=== PATIENT | female | born 1950 | race African-American/Black ===

== ENCOUNTER → 2016-05-08 | Outpatient (CLI) | payer MEDICARE, OTHER ==
[2016-02-15 15:50] VITALS: BP 110/74
[~2016-05-08] MED LIST: ALPR0.5T PO; AMOX250C PO; ASPI325T4 PO; CALC500T27 PO; CRESTOR10 MG PO; GABA-585 PO; GABA-586 PO; HEPARIN PF 500 UNIT/5 ML DISP.SYRIN. IV ONE; HYDR-2680; HYDR-2762 PO; IOHEXOL 240 MG/ML 50ML VIAL. PO ONE; IOHEXOL 300 MG/ML 100ML VIAL. IV ONE; LETR2.5T18 PO; MULT-245 PO; OMEG1CAP6 PO; RISP1TAB43 PO; SENN1TAB29 PO; SPIR50TA PO; TEMA15CA PO; ZOLP10TA PO
--- NOTE | 2016-05-08 11:14 | RAD ---
CT chest abdomen pelvis with IV contrast History: Metastatic breast cancer. Comparison: CT chest abdomen pelvis 01/12/2016. Technique: After administration of oral and intravenous contrast, 75 mL Omnipaque 300, helical CT of the chest, abdomen, and pelvis was performed from the lung apices through the ischial tuberosities. One or more of the following individualized dose reduction techniques were utilized for the study: Automated exposure control Adjustment of mA and/or kV according to patient's size Use of iterative reconstruction technique. Findings: Left mastectomy and axillary lymphadenectomy changes are seen. Thyroid is symmetric. Trachea and mainstem bronchi appear patent. No internal mammary, axillary, hilar, or mediastinal lymphadenopathy is seen. Heart and pericardium are unremarkable. There is a right chest port and catheter. There is dense material seen adjacent to the chest portable involving the right breast soft tissues which is favored to represent extravasation contrast. There is interval improvement of chest metastatic disease. A few examples include right upper lobe pulmonary nodule which now measures 1.9 cm in maximum dimension (axial image 18), previously 2.2 cm. Peripheral anterior left upper lobe soft tissue thickening now measures 3.0 x 1.2 cm in axial dimension (axial image 17), previously 3.2 x 2.1 cm. Superior segment of the right lower lobe demonstrates 1.6 cm soft tissue pulmonary nodule (axial image 33), previously 2.0 cm. The posterior right pleural thickening is decreased in severity. 4 example, maximum axial dimension on axial image 42 is 2.6 x 0.9 cm (previously 3.2 x 1.0 cm). No new chest abnormality is identified. Several low low-attenuation lesions involving the liver are without significant change. Spleen, pancreas, gallbladder, and bilateral adrenal glands are unremarkable. Bilateral kidneys enhance symmetrically. Aortic atherosclerosis is seen. Urinary bladder is unremarkable. Uterus has a lobulated contour and heterogeneous appearance, probably from leiomyomata. No bowel obstruction or inflammation is identified. Appendix is without evidence of inflammation. No free air or free fluid is seen in the abdomen or pelvis. No abdominal or pelvic lymphadenopathy is seen. No suspicious osseous lesions are seen. Impression: 1. Interval improvement in metastatic disease involving the chest. 2. No evidence of metastatic disease in the abdomen or pelvis. 3. Subcutaneous infiltration within the right breast of a portion of intravenous contrast bolus.
== END | disposition home or self-care (01) ==
LOC: CT 08:31
PROVIDERS: ATTEND Internal Medicine Hematology & Oncology
DX: C50.912 Malignant neoplasm of unspecified site of left female breast (principal); C79.40 Secondary malignant neoplasm of unspecified part of nervous system
CPT/HCPCS: 71260; 74177; Q9966; Q9967

== ENCOUNTER → 2016-07-31 | Outpatient (CLI) | payer MEDICARE, OTHER ==
[2016-02-15 15:50] VITALS: BP 110/74
[~2016-07-31] MED LIST changes: +CONTRAST GIVEN MC PRN; -HEPARIN PF 500 UNIT/5 ML DISP.SYRIN. IV ONE; -IOHEXOL 300 MG/ML 100ML VIAL. IV ONE; +IOHEXOL 300 MG/ML 75 ML VIAL IV ONE; +PACL100V IV
--- NOTE | 2016-07-31 12:38 | RAD ---
CT chest abdomen pelvis with IV contrast History: Follow-up, primary left breast cancer. Comparison: CT chest abdomen pelvis 05/08/2016. Technique: After administration of oral and intravenous contrast, 75 mL Omnipaque 300, helical CT of the chest, abdomen, and pelvis was performed from the lung apices through the ischial tuberosities. One or more of the following individualized dose reduction techniques were utilized for the study: Automated exposure control Adjustment of mA and/or kV according to patient's size Use of iterative reconstruction technique. Findings: Left mastectomy and axillary lymphadenectomy changes are seen. Thyroid is symmetric. Trachea and mainstem bronchi appear patent. Right chest port and catheter are present with tip of the catheter at the atriocaval junction. No internal mammary, axillary, mediastinal, or hilar lymphadenopathy is seen. Thoracic aorta has normal caliber. Some of the pulmonary metastatic lesions appear mildly improved. No new pulmonary nodules are seen. For example, right upper lobe pulmonary nodule measuring 1.5 cm in axial dimension (previously 1.9 cm). Peripheral anterior left upper lobe soft tissue thickening appears unchanged measuring 3.0 x 1.2 cm in axial dimension. Superior segment of the right upper lobe demonstrates 1.3 cm nodule (previously 1.6 cm). The posterior right pleural thickening appears slightly less convex on on current examination than on the previous study. Other small pulmonary nodules appear similar in size to minimally decreased from previous study. Liver again demonstrates several low-density lesions, without significant change. Spleen, pancreas, gallbladder, and bilateral adrenal glands are unremarkable. Bilateral kidneys enhance symmetrically. No abdominal or pelvic lymphadenopathy is seen. No bowel obstruction or inflammation is identified. Appendix is without evidence of inflammation. Leiomyomatous uterus, with scattered calcifications, is seen. Urinary bladder is unremarkable. No free air or free fluid is seen in the abdomen or pelvis. No suspicious osseous lesions are identified Impression: 1. A few chest metastases appear slightly smaller from the previous study while several additional pulmonary metastases appear similar in size. 2. No evidence of metastatic disease in the abdomen or pelvis.
== END | disposition home or self-care (01) ==
LOC: CT 09:02
PROVIDERS: ATTEND Internal Medicine Hematology & Oncology
DX: C50.912 Malignant neoplasm of unspecified site of left female breast (principal); C79.40 Secondary malignant neoplasm of unspecified part of nervous system
CPT/HCPCS: 71260; 74177; Q9966; Q9967

== ENCOUNTER → 2016-09-05 | Outpatient (CLI) | payer MEDICARE, OTHER ==
[2016-02-15 15:50] VITALS: BP 110/74
[~2016-09-05] MED LIST changes: -CONTRAST GIVEN MC PRN; -IOHEXOL 240 MG/ML 50ML VIAL. PO ONE; -IOHEXOL 300 MG/ML 75 ML VIAL IV ONE
--- NOTE | 2016-09-05 13:57 | RAD ---
Indication: Left leg edema. Grayscale, color-flow and duplex Doppler evaluation of the left lower extremity deep venous system was performed. FINDINGS: There is no evidence of a left lower extremity DVT. The left lower extremity venous system demonstrates normal compressibility with normal response to augmentation and Valsalva. No soft tissue fluid collections are identified. IMPRESSION: No evidence of left lower extremity DVT.
== END | disposition home or self-care (01) ==
LOC: US 11:34
PROVIDERS: ATTEND Internal Medicine Hematology & Oncology
DX: R60.0 Localized edema (principal); M79.605 Pain in left leg
CPT/HCPCS: 93971

== ENCOUNTER → 2016-10-19 | Outpatient (CLI) | payer MEDICARE, OTHER ==
[2016-02-15 15:50] VITALS: BP 110/74
[~2016-10-19] MED LIST changes: -ASPI325T4 PO; +ASPI325T8 PO; -CALC500T27 PO; +CALC500T30 PO; +HEPARIN PF 500 UNIT/5 ML DISP.SYRIN. IV ONE; +IOHEXOL 240 MG/ML 50ML VIAL. PO ONE; +IOHEXOL 300 MG/ML 75 ML VIAL IV ONE
--- NOTE | 2016-10-19 12:59 | RAD ---
CT of the chest, abdomen and pelvis with contrast, 10/19/2016: History: Breast cancer with metastases, follow-up Multidetector CT imaging was performed following oral and IV administration of contrast. Comparison is made to a study from 07/31/2016. There has been a previous left mastectomy. There is a spiculated parenchymal opacity in the anterior aspect of the left upper lobe abutting the pleura. It measures approximately 3 cm in width and has shown no definite change since the previous study. An adjacent small bowel soft tissue density within the chest wall extending into the infraclavicular region is unchanged. There are surgical clips in this region. There are multiple small spiculated lesions in the right lung. There is an 8 x 14 mm nodule in the right upper lobe as seen on image 13 of series #2 which measured 10 x 15 mm on the previous study. A small triangular nodule in the right upper lobe seen laterally on image 19 of series #2 also appears to have decreased slightly in size since previous study. Several other right pulmonary nodules appear to be unchanged since the previous exam. No new pulmonary mass is seen. There is no evidence of pleural fluid. A right Port-A-Cath extends to the level of the atriocaval junction. No mediastinal or hilar adenopathy is evident. Several small well-defined low density lesions in the liver are unchanged and are probably cysts. The gallbladder is unremarkable. No pancreatic abnormality is detected. The spleen is of normal size. No renal or adrenal abnormality is detected. There is mild aortoiliac calcific plaquing. No abdominal or pelvic adenopathy is seen. The uterine contour is lobulated probably due to fibroids. The bowel loops are not dilated. No free fluid or free air is evident in the abdomen or pelvis. IMPRESSION: 1. Stable left anterior upper chest wall and underlying subpleural parenchymal densities. 2. Slight interval improvement in several of the right pulmonary nodules, while several other nodules are stable. 2. No CT evidence of metastatic disease in the abdomen or pelvis. PQRS Compliance Statement: One or more of the following individualized dose reduction techniques were utilized for this examination: 1. Automated exposure control 2. Adjustment of the mA and/or kV according to patient size 3. Use of iterative reconstruction technique
== END | disposition home or self-care (01) ==
LOC: CT 08:00
PROVIDERS: ATTEND Internal Medicine Hematology & Oncology
DX: C79.40 Secondary malignant neoplasm of unspecified part of nervous system (principal); C50.912 Malignant neoplasm of unspecified site of left female breast; R91.1 Solitary pulmonary nodule; K76.89 Other specified diseases of liver; D25.9 Leiomyoma of uterus, unspecified; Z90.12 Acquired absence of left breast and nipple
CPT/HCPCS: 71260; 74177; Q9966; Q9967

== ENCOUNTER → 2016-12-11 | Outpatient (CLI) | payer MEDICARE, OTHER ==
[2016-02-15 15:50] VITALS: BP 110/74
[~2016-12-11] MED LIST changes: -HEPARIN PF 500 UNIT/5 ML DISP.SYRIN. IV ONE; -IOHEXOL 240 MG/ML 50ML VIAL. PO ONE; -IOHEXOL 300 MG/ML 75 ML VIAL IV ONE
--- NOTE | 2016-12-11 10:33 | RAD ---
DATE: 12/11/2016 EXAM: DIGITAL DIAGNOSTIC RT HISTORY: History of left breast cancer status post mastectomy. Screening mammogram. COMPARISON: Prior mammogram from 11/05/2013, 10/03/2012 This study was interpreted with the benefit of Computerized Aided Detection (CAD). The breast parenchyma is heterogeneously dense, which could reduce sensitivity of mammography. Breast parenchyma level C. FINDINGS: CC and MLO views of the right breast are performed. There are no suspicious microcalcifications, masses or areas of architectural distortion. Findings are stable from the prior mammogram. IMPRESSION: Negative right mammogram. Recommend annual screening mammography. BI-RADS CATEGORY: 1 NEGATIVE RECOMMENDED FOLLOW-UP: 12M 12 MONTH FOLLOW-UP PQRS compliance statement: Patient information was entered into a reminder system with a target due date 12/11/2017 for the next mammogram. Mammography is a sensitive method for finding small breast cancers, but it does not detect them all and is not a substitute for careful clinical examination. A negative mammogram does not negate a clinically suspicious finding and should not result in delay in biopsying a clinically suspicious abnormality. "Our facility is accredited by the [employer] Mammography Program."
== END | disposition home or self-care (01) ==
LOC: MAMMO 09:45
PROVIDERS: ATTEND Nurse Practitioner Adult Health
DX: C50.412 Malignant neoplasm of upper-outer quadrant of left female breast (principal); Z90.12 Acquired absence of left breast and nipple; Z85.3 Personal history of malignant neoplasm of breast
CPT/HCPCS: G0206; 77065

== ENCOUNTER → 2017-01-14 | Outpatient (CLI) | payer MEDICARE, OTHER ==
[2016-02-15 15:50] VITALS: BP 110/74
[~2017-01-14] MED LIST changes: +ALPR1TAB2 PO; +SPIR100T PO
== END | disposition home or self-care (01) ==
LOC: CT 09:12
PROVIDERS: ATTEND Internal Medicine Hematology & Oncology
DX: C50.912 Malignant neoplasm of unspecified site of left female breast (principal); C79.40 Secondary malignant neoplasm of unspecified part of nervous system
CPT/HCPCS: 71260; 74177; Q9966; Q9967

== ENCOUNTER → 2017-01-15 | Outpatient (CLI) | payer MEDICARE, OTHER ==
[2016-02-15 15:50] VITALS: BP 110/74
--- NOTE | 2017-01-15 12:26 | RAD ---
Indication right arm swelling. Grayscale color Doppler and spectral imaging was performed. The examination was targeted to the veins of the right upper extremity. The internal jugular vein is widely patent. The subclavian and axillary veins appear normal. The paired brachial veins appear normal. The basilic visualized radial and ulnar and cephalic vein also appeared normal. The left subclavian vein appeared normal. Some generalized soft tissue swelling was noted during the exam IMPRESSION: Negative right upper extremity venous analysis for DVT
== END | disposition home or self-care (01) ==
LOC: US 10:23
PROVIDERS: ATTEND Radiology Radiation Oncology
DX: M79.89 Other specified soft tissue disorders (principal)
CPT/HCPCS: 93971

== ENCOUNTER → 2017-04-09 | Outpatient (CLI) | payer MEDICARE, OTHER ==
[2016-02-15 15:50] VITALS: BP 110/74
[~2017-04-09] MED LIST changes: +CONTRAST GIVEN MC PRN; +HEPARIN PF 500 UNIT/5 ML DISP.SYRIN. IV ONE; +IOHEXOL 240 MG/ML 50ML VIAL. PO ONE; +IOHEXOL 300 MG/ML 100ML VIAL. IV ONE
--- NOTE | 2017-04-09 13:23 | RAD ---
CT of the chest, abdomen and pelvis with contrast, 04/09/2017: History: Metastatic breast cancer Multidetector CT imaging was performed following oral and IV administration of contrast. Comparison is made to a study from 01/14/2017. A right Port-A-Cath extends to the level of the atriocaval junction. No mediastinal or hilar adenopathy is seen. There is a lobulated nodule in the posteromedial aspect of the superior segment of the right lower lobe abutting the oblique fissure. It has increased slightly in size since 01/14/2017, currently measuring 14 mm in width compared to a measurement of 12 mm on the previous study. There is an irregular parenchymal opacity in the anterior aspect of the left upper lobe which is unchanged. There are multiple smaller nodular opacities in the right upper lobe which also appear to be unchanged. These tend to be irregular and spiculated. There is an unchanged streaky opacity in the right base compatible with scarring or chronic atelectasis. There is a small left pleural effusion, similar to that seen on the previous exam. There is minimal underlying atelectasis posteriorly in the left base. The left breast is surgically absent. There are surgical clips in the left axilla. No axillary adenopathy is seen. There are several unchanged low-density lesions in the liver. The largest of these demonstrates a low internal density compatible with a cyst. Some of the smaller lesions are too small to definitively characterize, however, they appear unchanged and are probably also cysts. The gallbladder is unremarkable. No pancreatic abnormality is seen. The spleen is of normal size. No renal or adrenal abnormality is detected. The abdominal aorta is unremarkable. No abdominal or pelvic adenopathy is seen. There is unchanged lobulation of the upper aspect of the uterus, most likely due to uterine fibroids. The bowel loops are not dilated. No free fluid is present in the abdomen or pelvis. There are mild scattered degenerative changes in the spine. IMPRESSION: 1. Slight further interval enlargement of the lobulated right lower lobe pulmonary mass, compatible with malignancy. 2. Additional smaller irregular right lung nodules appear stable. 3. Stable pleural/parenchymal opacity in the anterior aspect of the left upper lobe. 4. Unchanged small left pleural effusion. 5. Stable small low-density hepatic lesions which are probably cysts. 6. No CT evidence of metastatic disease in the abdomen or pelvis. PQRS Compliance Statement: One or more of the following individualized dose reduction techniques were utilized for this examination: 1. Automated exposure control 2. Adjustment of the mA and/or kV according to patient size 3. Use of iterative reconstruction technique
--- NOTE | 2017-04-09 13:29 | RAD ---
Radionuclide bone scan, 04/09/2017: History: Metastatic breast cancer A body imaging was performed following IV injection of 25 mCi of technetium 99m MDP. Comparison is made to a study from 06/18/2015. The following findings are delineated: 1. Mildly increased activity is present at the shoulders, probably due to arthritis. This is slightly greater on the left and it appears to have progressed slightly since the previous study. The CT images of this region show no suspicious bony lesion. 2. Photon deficient areas at both knees may be due to knee prostheses. There is mild symmetrical increased activity at both knees and ankles compatible with arthritis. 3. Activity of the radionuclide about the skeleton the major joints is otherwise unremarkable. IMPRESSION: No bone scan findings to suggest osseous metastatic disease.
== END | disposition home or self-care (01) ==
LOC: NM 08:08
PROVIDERS: ATTEND Internal Medicine Hematology & Oncology
DX: C50.912 Malignant neoplasm of unspecified site of left female breast (principal); C79.40 Secondary malignant neoplasm of unspecified part of nervous system; J90 Pleural effusion, not elsewhere classified; Z87.891 Personal history of nicotine dependence; Z79.01 Long term (current) use of anticoagulants
CPT/HCPCS: 71260; 74177; 78306; 96374; A9503; Q9966; Q9967

== ENCOUNTER → 2017-09-02 | Outpatient (CLI) | payer MEDICARE, OTHER ==
[2017-09-02] MEDS: IOHEXOL 240 MG/ML 50ML VIAL. PO (10:11)
[2017-09-02] MEDS: IOHEXOL 300 MG/ML 100ML VIAL. IV (10:11)
[2017-09-02] MEDS: HEPARIN PF 500 UNIT/5 ML DISP.SYRIN. IV (10:12)
== END | disposition home or self-care (01) ==
LOC: CT 07:44
DX: C50.412 Malignant neoplasm of upper-outer quadrant of left female breast (principal); J90 Pleural effusion, not elsewhere classified; I10 Essential (primary) hypertension; E11.9 Type 2 diabetes mellitus without complications; Z92.3 Personal history of irradiation; Z87.891 Personal history of nicotine dependence
CPT/HCPCS: 71260; 74177; Q9966; Q9967

== ENCOUNTER → 2017-12-26 | Outpatient (CLI) | payer MEDICARE, OTHER ==
[2016-02-15 15:50] VITALS: BP 110/74
[~2017-12-26] MED LIST changes: -CONTRAST GIVEN MC PRN; -HEPARIN PF 500 UNIT/5 ML DISP.SYRIN. IV ONE; -IOHEXOL 240 MG/ML 50ML VIAL. PO ONE; -IOHEXOL 300 MG/ML 100ML VIAL. IV ONE
[2017-12-26] MEDS: IOHEXOL 240 MG/ML 50ML VIAL. PO ONE (09:30)
[2017-12-26] MEDS: IOHEXOL 300 MG/ML 100ML VIAL. IV ONE (10:46)
[2017-12-26] MEDS: HEPARIN PF 500 UNIT/5 ML DISP.SYRIN. IV ONE (10:48)
--- NOTE | 2017-12-26 11:30 | RAD ---
CT CHEST ABD PELVIS W/CONTRAST Indication: Breast cancer Technique: Postcontrast CT imaging was performed of the chest, abdomen, and pelvis, multiplanar reconstruction images submitted. One or more of the following individualized dose reduction techniques were utilized for this examination: 1. Automated exposure control 2. Adjustment of the mA and/or kV according to patient size 3. Use of iterative reconstruction technique. Contrast: 75 cc Omnipaque 300 Comparison: September 02, 2017 CHEST: Findings: There is again right lower lobe mass abutting the pleural surface axial image 31 series 2 about 3.2 cm transverse by 1.8 cm AP oblique by 2.4 cm CC versus previously about 2.5 cm transverse by 1.8 cm AP oblique by 2.1 cm cc, somewhat larger in interval. There are again some grouped right upper lobe nodules closer to the apex, largest of these about 1.7 cm fairly similar and more medial nodule about 0.8 cm fairly similar. However the more lateral nodule axial image 13 about 0.7 cm previously measured about 0.5 cm, larger. There is another nodule just superiorly about 0.9 cm which is similar. Other previously seen masses are more similar in size. There is similar 1 cm mass right upper lobe axial image 26 and 0.7 cm nodule of the right upper lobe axial image 20. Peripheral density anteriorly of the left upper lobe abutting the pleural surface in overall dimension about 3.1 cm is similar. No new significant pulmonary nodularity is identified. There is trace left pleural effusion. There is no pneumothorax. Somewhat ectatic ascending thoracic aorta measures about 3.7 cm, similar. No new significantly enlarged nodes are identified of the chest. There again has been left mastectomy. There is stable mild sclerotic appearance of the left first rib. IMPRESSION: 1. Two of the previously seen nodular masses on the right are larger in the interval compared with the August 2017 exam, no new significant pulmonary nodularity or lymphadenopathy. There is similar nonspecific sclerosis of the left first rib. There is trace left pleural effusion. Abdomen and pelvis: FINDINGS: There are some stable hypodense foci of the liver, largest about 2.1 cm. No new lesion is identified of the liver, spleen, pancreas. Gallbladder is present without obvious intraluminal abnormality by CT. Both kidneys enhance, no hydronephrosis. There is no adrenal nodularity. Bowel is not significantly dilated. Bowel is not well opacified with oral contrast. There is appearance of possible wall thickening of the ascending colon to the hepatic flexure. There is increased diffuse prominent body wall edema. There is distention of the urinary bladder. There is some hazy and strandy density of the mesentery as seen previously. There is no free air. There is multilevel lumbar facet degenerative change. There is L5-S1 degenerative disc disease with vacuum phenomenon. No new significant lymphadenopathy is identified. IMPRESSION: 1. There is no new significant lymphadenopathy or other evidence of new metastatic disease to the abdomen and pelvis. There is increased diffuse anasarca. 2. There is distention of the urinary bladder. 3. Bowel is not well opacified with oral contrast for accurate evaluation, appearance of wall thickening of the ascending colon to the hepatic flexure, colitis not excluded. Electronically signed by: Vish Akhtar MD (12/26/2017 11:26 AM) [id number]
== END | disposition home or self-care (01) ==
LOC: CT 09:43
PROVIDERS: ATTEND Internal Medicine Hematology & Oncology
DX: C78.02 Secondary malignant neoplasm of left lung (principal); M51.37 Other intervertebral disc degeneration, lumbosacral region; I10 Essential (primary) hypertension; E11.9 Type 2 diabetes mellitus without complications; Z87.891 Personal history of nicotine dependence; Z92.3 Personal history of irradiation; Z85.3 Personal history of malignant neoplasm of breast; Z90.12 Acquired absence of left breast and nipple
CPT/HCPCS: 71260; 74177; Q9966; Q9967

== ENCOUNTER → 2018-01-24 | Outpatient (CLI) | payer MEDICARE, OTHER ==
[2016-02-15 15:50] VITALS: BP 110/74
--- NOTE | 2018-01-27 08:44 | RAD ---
DATE: 01/24/2018 EXAM: DIGITAL SCREEN RT W/CAD HISTORY: Left mastectomy in 2003 COMPARISON: 11/05/2013 right unilateral digital screening mammogram, 12/11/2016 right unilateral screening mammogram This study was interpreted with the benefit of Computerized Aided Detection (CAD ). Breast Density: DENSE The breast parenchyma is dense, which could reduce the sensitivity of mammography. Breast parenchyma level density D. FINDINGS: Parenchymal distribution is stable. Benign calcifications are present. Interval development of significant skin thickening is noted at the inferior, lateral aspect of the right breast primarily. No dominant mass lesion. IMPRESSION: While there is no dominant mass or suspicious cluster of calcifications, significant skin thickening is present. Clinical management is required to assess for possibility of inflammatory breast carcinoma. Correlation clinically is required. BI-RADS CATEGORY: 2 BENIGN FINDING(S) RECOMMENDED FOLLOW-UP: PQRS compliance statement: Patient information was entered into a reminder system with a target due date for the next mammogram. Mammography is a sensitive method for finding small breast cancers, but it does not detect them all and is not a substitute for careful clinical examination. A negative mammogram does not negate a clinically suspicious finding and should not result in delay in biopsying a clinically suspicious abnormality. "Our facility is accredited by the [employer] Mammography Program." MTDD
== END | disposition home or self-care (01) ==
LOC: MAMMO 09:51
PROVIDERS: ATTEND Family Medicine
DX: Z12.31 Encounter for screening mammogram for malignant neoplasm of breast (principal); C78.02 Secondary malignant neoplasm of left lung; I10 Essential (primary) hypertension; Z85.3 Personal history of malignant neoplasm of breast; Z87.891 Personal history of nicotine dependence; Z92.3 Personal history of irradiation; Z90.12 Acquired absence of left breast and nipple
CPT/HCPCS: 77067

== ENCOUNTER → 2018-02-19 | Outpatient (CLI) | payer MEDICARE, OTHER ==
[2016-02-15 15:50] VITALS: BP 110/74
--- NOTE | 2018-02-19 11:01 | CARD ---
MR#: [id number] Date of Study: 02/19/2018 Ordering Physician: KEVIN FARFAN, Referring Physician: KEVIN FARFAN, Tech: Isaura Olea PHU APPROVED REPORT EXAM: Two-dimensional and M-mode echocardiogram with Doppler and color Doppler. Other Information Quality : Fair INDICATION Hypertension/HCVD 2D DIMENSIONS RVDd2.2 (2.9-3.5cm)Left Atrium(2D)2.5 (1.6-4.0cm) IVSd0.9 (0.7-1.1cm)Aortic Root(2D)2.8 (2.0-3.7cm) LVDd3.8 (3.9-5.9cm)LVOT Diameter2.0 (1.8-2.4cm) PWd0.9 (0.7-1.1cm)LVDs2.7 (2.5-4.0cm) FS (%) 30.1 %SV35.9 ml LVEF(%)58.2 (>50%) Aortic Valve AoV Peak Milad.114.3cm/sAoV VTI20.6cm AO Peak GR.5.2mmHgLVOT Peak Milad.98.7cm/s AO Mean GR.3mmHgAVA (VMAX)2.61cm2 DARA (VTI)2.80cm2 Mitral Valve MV E Rachdbrh62.5cm/sMV DECEL VIJF179nm MV A Nqofgvbi09.7cm/sE/A Ratio0.9 Tricuspid Valve TR P. Ssohstsp851yu/sRAP BWUKURJN0drRb TR Peak Gr.02wvToBOBS57omMy Pulmonary Vein S1 Fqimhujo81.3cm/sD2 Tyiunfwi80.9cm/s LEFT VENTRICLE The left ventricle is normal size. There is normal left ventricular wall thickness. The left ventricu lar systolic function is normal . The Ejection Fraction is 55-60%. There is normal LV segmental wall motion. Transmitral Doppler flow pattern is Grade I-abnormal relaxation pattern. RIGHT VENTRICLE The right ventricle is normal size. The right ventricular systolic function is normal. ATRIA The left atrium size is normal. The right atrium size is normal. The interatrial septum is intact wit h no evidence for an atrial septal defect or patent foramen ovale as noted on 2-D or Doppler imaging. AORTIC VALVE The aortic valve is calcified but opens well. Doppler and Color Flow revealed no significant aortic r egurgitation. There is no significant aortic valvular stenosis. MITRAL VALVE The mitral valve is normal in structure and function. There is no evidence of mitral valve prolapse. There is no mitral valve stenosis. Doppler and Color-flow revealed trace mitral regurgitation. TRICUSPID VALVE The tricuspid valve is normal in structure and function. Doppler and Color Flow revealed mild tricusp id regurgitation. There is moderate pulmonary hypertension. The PA pressure was estimated at 50 mmHg. There is no tricuspid valve stenosis. PULMONIC VALVE The pulmonary valve is normal in structure and function. Doppler and Color Flow revealed trace pulmon ic valvular regurgitation. There is no pulmonic valvular stenosis. GREAT VESSELS The aortic root is normal in size. The ascending aorta is mildly dilated at 3.5 cm. The IVC is normal in size and collapses <50% with inspiration. PERICARDIAL EFFUSION There is no evidence of significant pericardial effusion. Critical Notification Critical Value: No <Conclusion> The left ventricular systolic function is normal . The Ejection Fraction is 55-60%. There is normal LV segmental wall motion. Trace mitral regurgitation. Mild tricuspid regurgitation. There is moderate pulmonary hypertension. The PA pressure was estimated at 50 mmHg. There is no evidence of significant pericardial effusion. Signed by : Felipe Koch, Electronically Approved : 02/19/2018 11:01:24
--- NOTE | 2018-02-19 12:01 | RAD ---
MR#: [id number] Date of Study: 02/19/2018 Ordering Physician: KEVIN FARFAN, Referring Physician: KEVIN FARFAN, Tech: Eber Martinez MBA, RDMS, RVT, RDCS, RTR APPROVED REPORT Bilateral Lower Extremity Venous Study for DVT Patient Location: OUT-PATIENT Indications Lower Extremity Edema: Bilateral Vein Imaging (Right) CFV (R): Compressible SFJ (R): Compressible FEM (R): Compressible POP (R): Compressible DFV (R): Compressible PTV (R): Spontaneous GSV (R): Spontaneous Peroneals (R): Spontaneous Vein Imaging (Left) CFV (L): Compressible SFJ (L): Compressible FEM (L): Compressible POP (L): Compressible DFV (L): Compressible PTV (L): Spontaneous GSV (L): Spontaneous Peroneals (L): Spontaneous Doppler Evaluation (Right) CFV (R): Spontaneous POP (R):Spontaneous Doppler Evaluation (Left) CFV (L):Spontaneous POP (L):Spontaneous Findings Grayscale images of the bilateral lower extremity deep veins are technically limited. The bilateral c ommon femoral veins appear to be compressible without any evidence of thrombus. The bilateral superfi cial and popliteal veins are not well visualized due to body habitus but grossly demonstrates spectra l waveforms consistent with normal flow. The bilateral below-knee veins demonstrate spontaneous flow. Critical Notification Critical Value: No <Conclusion> Negative for DVT in the bilateral lower extremities. Technically difficult study Signed by : Jason Ramos, Electronically Approved : 02/19/2018 12:01:15
--- NOTE | 2018-02-19 12:04 | RAD ---
MR#: [id number] Date of Study: 02/19/2018 Ordering Physician: KEVIN FARFAN, Referring Physician: KEVIN FARFAN, Tech: Eber Martinez MBA, RDMS, RVT, RDCS, RTR APPROVED REPORT Patient Location : OUT-PATIENT Indications Lower Extremity Edema : Bilateral Findings Grayscale images of the bilateral saphenofemoral junctions, greater and lesser saphenous veins do not demonstrate any evidence of thrombus The right great saphenous vein measures 7.1 mm and the left great saphenous vein measures 6.1 mm. The re is no evidence of reflux. The bilateral lesser saphenous veins do not show any evidence of reflux. Critical Notification Critical Value: No <Conclusion> Negative for reflux in the bilateral greater and lesser saphenous veins Signed by : Jason Ramos, Electronically Approved : 02/19/2018 12:03:59
== END | disposition home or self-care (01) ==
LOC: ECHO 08:20
PROVIDERS: ATTEND Internal Medicine Cardiovascular Disease
DX: I07.1 Rheumatic tricuspid insufficiency (principal); I27.20 Pulmonary hypertension, unspecified; R06.02 Shortness of breath; R60.9 Edema, unspecified
CPT/HCPCS: 93306; 93970

== ENCOUNTER 2019-12-02 13:35 | Emergency (ER) | payer MEDICARE, OTHER ==
[~2019-12-02] VITALS: Ht 160 cm; Wt 79.5 kg
[~2019-12-02 13:35] MED LIST changes: +FEMARA2.5 MG PO; -GABA-586 PO; +GABA300C18 PO; -HYDR-2762 PO; +HYDR-2765 PO; -LETR2.5T18 PO
[2019-12-02] MEDS: HYDROcodone/APAP 10/325 1 TAB TABLET PO ONE (14:49)
[2019-12-02] MEDS: GABAPENTIN 300 MG CAPSULE. PO ONE (14:49)
--- NOTE | 2019-12-02 15:06 | PHYS DOC ---
Past Medical History Past Medical History: Anxiety, Cancer, High Cholesterol Additional Past Medical Histor: LEFT ARM, LING, BREAST, NECK CANCER Past Surgical History: Cancer Surgery Additional Past Surgical Histo: LEFT MASECTOMY Smoking Status: Former Smoker Alcohol Use: None Drug Use: None General Adult EDM: Chief Complaint: SHORTNESS OF BREATH HPI: HPI: Patient is a 69 year old female who presents with here from [facility] primary care with continued shortness of breath for the last 2 weeks. She also states that she was going to the doctor today for her left shoulder wound that is been growing over the last 2 months and has now started draining purulent fluid. Patient states she also complains that she feels like her heartbeat is been running fast over the last 2 weeks she does not know why. In the ED patient's heart rate was around 110. Patient was satting 95% on room air when I was in the room examining her. She denies any chest pain or new pain other than her regular cancer pain. Patient denies fever, nausea, vomiting, diarrhea, cough, headache, dizziness, syncope, new focal weakness, numbness or tingling, vision changes. Patient is asking for her hydrocodone and her gabapentin as she takes it 4-5 times a day she does note her pain to get out of control. Patient sees Dr. Guerrero for oncology. 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 Patient's left arm is swollen and she does not have movement in that left arm and she states is been like that for quite a long time since she is had all of her surgeries for her cancers. She is alert and oriented. Patient does have an abscess to the left shoulder of which on the paperwork from [facility] primary care states that she has referred to wound care. Patient states nothing makes her shortness of breath worse or better. Physician at [facility] sent her here so she can obtain home O2 and a saturation study. They did refer her to wound care today for the large abscess on her left clavicle that is been there for months. When looking at the med list for her visit for today she was added a Levaquin prescription. Review of Systems: Review of Systems: Constitutional: Denies fever or chills. [] Eyes: Denies change in visual acuity. [] HENT: Denies nasal congestion or sore throat. [] Respiratory: Denies cough. +shortness of breath. [] Cardiovascular: Denies chest pain or chronic left arm edema. [] GI: Denies abdominal pain, nausea, vomiting, bloody stools or diarrhea. [] : Denies dysuria. [] Musculoskeletal: Denies back pain or joint pain. [] Integument: Denies rash. chronic left clavicle open abscess x 2 month. [] Neurologic: Denies headache, focal weakness or sensory changes. [] Endocrine: Denies polyuria or polydipsia. [] Lymphatic: Denies swollen glands. [] Psychiatric: Denies depression or anxiety. [] Heart Score: Risk Factors: Risk Factors: DM, Current or recent (<one month) smoker, HTN, HLP, family history of CAD, obesity. Risk Scores: Score 0 - 3: 2.5% MACE over next 6 weeks - Discharge Home Score 4 - 6: 20.3% MACE over next 6 weeks - Admit for Clinical Observation Score 7 - 10: 72.7% MACE over next 6 weeks - Early Invasive Strategies Current Medications: Current Medications Medications (Trade) Dose Ordered Sig/Linden Start Time Stop Time Status Last Admin Dose Admin Acetaminophen/ Hydrocodone Bitart (Lortab 10/325) 1 tab 1X ONCE 12/02/19 14:30 12/02/19 14:32 DC 12/02/19 14:49 1 TAB Gabapentin (Neurontin) 600 mg 1X ONCE 12/02/19 14:30 12/02/19 14:32 DC 12/02/19 14:49 600 MG Allergies: Allergies: Allergies Coded Allergies Type Severity Reaction Last Updated Verified No Known Drug Allergies 02/15/16 No Physical Exam: PE: Constitutional: Well developed, well nourished, no acute distress, non-toxic appearance. [] HENT: Normocephalic, atraumatic, bilateral external ears normal, oropharynx moist, no oral exudates, nose normal. [] Eyes: PERRLA, EOMI, conjunctiva normal, no discharge. [] Neck: Normal range of motion, no tenderness, supple, no stridor. [] Cardiovascular:Heart rate regular rhythm, no murmur [] Lungs & Thorax: Bilateral upper breath sounds clear and lower diminished to auscultation [] Abdomen: Bowel sounds normal, soft, no tenderness, no masses, no pulsatile masses. [] Skin: Warm, dry, no erythema, no rash. Left clavicle/ shoulder open draining abscess. [] Back: No tenderness, no CVA tenderness. [] Extremities: No tenderness, no cyanosis, no clubbing, ROM intact, Left arm 3+ edema. [] Neurologic: Alert and oriented X 3, normal motor function, normal sensory function, no focal deficits noted. [] Psychologic: Affect normal, judgement normal, mood normal. [] Current Patient Data: Vital Signs: Vital Signs Date Time Temp Pulse Resp B/P (MAP) Pulse Ox O2 Delivery O2 Flow Rate FiO2 12/02/19 14:49 Room Air 12/02/19 13:55 99.0 111 17 159/70 (36) 94 99.0 EKG: EK and read by Dr Hilario as NSR and no STEMI[] Radiology/Procedures: Radiology/Procedures: [] Impression: [facility] [address] [place], [place] [id number] IMAGING REPORT Signed PATIENT: ANNITA JEAN ACCOUNT: [id number] : 1950 LOCATION: ER AGE: 69 SEX: F EXAM STATUS: REG ER ORD. PHYSICIAN: HELLEN CONTRERAS APRN REASON: INCREASED SOA, LUNG CA PROCEDURE: PORTABLE CHEST 1V AP portable chest radiograph 12/02/2019 Clinical History: Shortness of breath. Breast cancer. An AP erect portable digital radiograph of the chest was obtained. Comparison is made to the patient's CT scan of the chest dated 12/26/2017. A right internal jugular Nzkavc-y-Ypyz type catheter is unchanged in position. Surgical clips overlie the left axilla. The cardiac silhouette is mildly enlarged. The thoracic aorta is tortuous. Elevation of the right hemidiaphragm is noted. There is a small right pleural effusion. Masslike opacities are seen involving both lungs, right greater than left which measure 1 cm to 3 cm in size. They are consistent with pulmonary metastasis. These have increased in size and number since the patient's previous CT scan. Right lower lobe atelectasis and/or infiltrate is noted. No pneumothorax is seen. There is diffuse osteopenia of the visualized bony structures. Degenerative changes are seen involving the thoracic spine and both shoulders. IMPRESSION: 1. Increasing metastatic disease to the lungs. 2. Small right pleural effusion with right lower lobe atelectasis and/or infiltrate. Electronically signed by: Zoran Morgan MD (12/02/2019 3:36 PM) [id number] DICTATED and SIGNED BY: ZORAN MORGAN MD DATE: 12/02/19 1536 [facility] [address] [place] [address] IMAGING REPORT Signed PATIENT: ANNITA JEAN ACCOUNT: [id number] : 1950 LOCATION: ER AGE: 69 SEX: F EXAM STATUS: REG ER ORD. PHYSICIAN: HELLEN CONTRERAS APRN REASON: SHORTNESS OF AIR, RULE OUT PE, chronic left clavicular abscess PROCEDURE: CT ANGIOGRAPHY CHEST Exam: CT chest with contrast INDICATION: Shortness of breath, chronic left clavicular abscess TECHNIQUE: Sequential axial images through the chest obtained following the administration of 100 mL of Omni 350 IV contrast. Sagittal and coronal reformatted images were reconstructed from the axial data and reviewed. 3-D reformatted images were reconstructed from the axial data and reviewed. Comparisons: Chest one view FINDINGS: Visualized portions of the thyroid are unremarkable. Several enlarged pretracheal and bilateral hilar lymph nodes are noted. Heart size is normal. No pericardial effusion. Thoracic aorta has a normal course and caliber. Pulmonary artery is not enlarged. No pulmonary embolus identified within the main, lobar or segmental pulmonary arteries. Airways are patent. There are numerous bilateral pulmonary nodules noted in the lungs bilaterally, largest at the right lung apex measuring 3.3 x 3.2 cm. There is dense consolidative changes throughout the right lower lobe. There are trace bilateral pleural effusions. There are several vague hypoattenuating lesions noted within the liver which are difficult characterized on this exam. No suspicious osseous lesions or acute fractures. IMPRESSION: 1. No pulmonary embolus identified within the main, lobar or segmental pulmonary arteries. 2. Numerous pulmonary nodules throughout the lungs bilaterally favored represent metastatic disease. 3. Trace bilateral pleural effusions. 4. Several vague hypoattenuating lesions within the liver incompletely characterized on this CT. Exposure: One or more of the following in the visualized dose reduction techniques were utilized for this examination: 1. Automated exposure control 2. Adjustment of the MA and/or KV according to patient size 3. Use of iterative of reconstructive technique Electronically signed by: Reji Lipscomb MD (12/02/2019 4:10 PM) [id number] DICTATED and SIGNED BY: REJI LIPSCOMB MD DATE: 12/02/19 1610 Course & Med Decision Making: Course & Med Decision Making Pertinent Labs and Imaging studies reviewed. (See chart for details) The HPI. I have discussed this patient with Dr. Hilario and he is going to go and look at the patient also. Lungs are clear in upper lobes but are diminished in lower lobes both laterally. Patient is alert and oriented x4. She speaks in full complete sentences. That left upper extremity is 3+ swollen of which the patient states has been like that for months and after her surgeries for her breast cancer. She states after the surgeries she has very limited movement in that left arm. Patient has a very large almost egg sized open abscess with purulent drainage over the left clavicle/shoulder area with tenderness to palpation over the area. [] I have spoken to Dr Guerrero duplication specialist Dr Narvaez and she states that since the patient is not hypoxic and she even took a look at the CT scan that it is reasonable that the patient can go home. She states to start the patient on Levaquin 500 as the [facility] physician had ordered today. She states that the patient has not seen Dr. Guerrero since March 20, 2019 and that the patient needs to return as soon as possible to see Dr. Guerrero and they can set her up with a elevator runner to maybe start some O2 oxygen up for the patient. I have discussed this patient with Dr Hilario and he agrees with care plan. Patient has a appointment with Cesar on the 09 of December. Sara Disclaimer: Sara Disclaimer: This electronic medical record was generated, in whole or in part, using a voice recognition dictation system. Departure Departure Impression: Primary Impression: Increasing shortness of breath Additional Impression: Abscess Disposition: 01 HOME, SELF-CARE Condition: STABLE Referrals: RADHA MARIN MD (PCP) Patient Instructions: Medical Screening Exam Additional Instructions: Follow-up with Dr. Guerrero on 09 December or he can call to get in sooner. He began having severe shortness of breath return to the emergency room. 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 Justicifation of Admission Dx: Justifications for Admission: Justification of Admission Dx: N/A HELLEN CONTRERAS APRN Dec 02, 2019 15:06
[2019-12-02 15:15] LABS: BASO % 0 % (0-3); EOS # 0.1 x10^3/uL (0.0-0.7); EOS % 2 % (0-3); HEMOGLOBIN 13.2 g/dL (12.0-15.5); LYMPH # 1.7 x10^3/uL (1.0-4.8); LYMPH % 20 % (24-48); MEAN CORPUSCULAR HEMOGLOBIN 27 pg (25-35); MEAN CORPUSCULAR HGB CONC 33 g/dL (31-37); MEAN CORPUSCULAR VOLUME 81 fL (79-100); MONO # 0.6 x10^3/uL (0.0-1.1); MONO % 7 % (0-9); NEUT # 5.9 x10^3/uL (1.8-7.7); NEUT % 71 % (31-73); PLATELET COUNT 332 x10^3/uL (140-400); RED BLOOD COUNT 4.93 x10^6/uL (3.50-5.40); RED CELL DISTRIBUTION WIDTH 14.3 % (11.5-14.5); WHITE BLOOD COUNT 8.4 x10^3/uL (4.0-11.0)
[2019-12-02 15:38] LABS: CREATININE 0.4 mg/dL (0.6-1.0); GFR 191.5; POTASSIUM 3.7 mmol/L (3.5-5.1)
--- NOTE | 2019-12-02 15:39 | RAD ---
AP portable chest radiograph 12/02/2019 Clinical History: Shortness of breath. Breast cancer. An AP erect portable digital radiograph of the chest was obtained. Comparison is made to the patient's CT scan of the chest dated 12/26/2017. A right internal jugular Opkhpq-i-Kmkg type catheter is unchanged in position. Surgical clips overlie the left axilla. The cardiac silhouette is mildly enlarged. The thoracic aorta is tortuous. Elevation of the right hemidiaphragm is noted. There is a small right pleural effusion. Masslike opacities are seen involving both lungs, right greater than left which measure 1 cm to 3 cm in size. They are consistent with pulmonary metastasis. These have increased in size and number since the patient's previous CT scan. Right lower lobe atelectasis and/or infiltrate is noted. No pneumothorax is seen. There is diffuse osteopenia of the visualized bony structures. Degenerative changes are seen involving the thoracic spine and both shoulders. IMPRESSION: 1. Increasing metastatic disease to the lungs. 2. Small right pleural effusion with right lower lobe atelectasis and/or infiltrate. Electronically signed by: Zoran Morgan MD (12/02/2019 3:36 PM) [id number]
[2019-12-02 15:46] LABS: ALBUMIN 2.8 g/dL (3.4-5.0); ALBUMIN/GLOBULIN RATIO 0.6 (1.0-1.7); TOTAL BILIRUBIN 0.2 mg/dL (0.2-1.0); TOTAL PROTEIN 7.5 g/dL (6.4-8.2)
[2019-12-02] MEDS: IOHEXOL 350 MG/ML 100 ML VIAL. IV ONE (15:54)
--- NOTE | 2019-12-02 15:58 | EKG ---
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
--- NOTE | 2019-12-02 16:13 | RAD ---
Exam: CT chest with contrast INDICATION: Shortness of breath, chronic left clavicular abscess TECHNIQUE: Sequential axial images through the chest obtained following the administration of 100 mL of Omni 350 IV contrast. Sagittal and coronal reformatted images were reconstructed from the axial data and reviewed. 3-D reformatted images were reconstructed from the axial data and reviewed. Comparisons: Chest one view FINDINGS: Visualized portions of the thyroid are unremarkable. Several enlarged pretracheal and bilateral hilar lymph nodes are noted. Heart size is normal. No pericardial effusion. Thoracic aorta has a normal course and caliber. Pulmonary artery is not enlarged. No pulmonary embolus identified within the main, lobar or segmental pulmonary arteries. Airways are patent. There are numerous bilateral pulmonary nodules noted in the lungs bilaterally, largest at the right lung apex measuring 3.3 x 3.2 cm. There is dense consolidative changes throughout the right lower lobe. There are trace bilateral pleural effusions. There are several vague hypoattenuating lesions noted within the liver which are difficult characterized on this exam. No suspicious osseous lesions or acute fractures. IMPRESSION: 1. No pulmonary embolus identified within the main, lobar or segmental pulmonary arteries. 2. Numerous pulmonary nodules throughout the lungs bilaterally favored represent metastatic disease. 3. Trace bilateral pleural effusions. 4. Several vague hypoattenuating lesions within the liver incompletely characterized on this CT. Exposure: One or more of the following in the visualized dose reduction techniques were utilized for this examination: 1. Automated exposure control 2. Adjustment of the MA and/or KV according to patient size 3. Use of iterative of reconstructive technique Electronically signed by: Reji Hartman MD (12/02/2019 4:10 PM) [id number]
[2019-12-02 16:20] LABS: BILIRUBIN,URINE NEGATIVE (NEG); CLARITY,URINE CLEAR; COLOR,URINE YELLOW; NITRITE,URINE NEGATIVE (NEG); PROTEIN,URINE NEGATIVE (NEG-TRACE)
[2019-12-02 16:28] LABS: SQUAMOUS EPITHELIAL CELL,UR MOD /LPF
[2019-12-02 16:31] LABS: BACTERIA,URINE FEW /HPF (0-FEW)
[2019-12-02 18:08] VITALS: BP 152/87
== END 2019-12-02 18:18 | disposition home or self-care (01) ==
LOC: ER 13:35
DX: L02.414 Cutaneous abscess of left upper limb (principal); R06.02 Shortness of breath; F41.9 Anxiety disorder, unspecified; E78.00 Pure hypercholesterolemia, unspecified; Z85.9 Personal history of malignant neoplasm, unspecified; Z98.890 Other specified postprocedural states; Z87.891 Personal history of nicotine dependence
CPT/HCPCS: 36415; 71045; 71275; 80053; 81001; 83880; 84484; 85025; 85379; 87086; 93005; 99285; Q9967

== ENCOUNTER 2020-02-16 03:38 | Inpatient (IN) | payer MEDICARE, OTHER ==
[~2020-02-16] VITALS: Ht 142.2 cm; Wt 80.2 kg
--- NOTE | 2020-02-16 04:13 | RAD ---
AP chest. HISTORY: Short of breath AP view was taken of the chest. There is a Port-A-Cath on the right. There are pulmonary nodules in the left lung suggesting metastatic disease. There is bowel distention in the abdomen. There is a right pleural effusion with mild increase compared to the study from January 24. There is also a left effusion without change. Heart is normal in size. IMPRESSION: 1. Pulmonary nodules suggesting metastatic disease. 2. Bilateral effusions with increased right effusion. Electronically signed by: Sandeep Berumen MD (02/16/2020 4:10 AM) [id number]
--- NOTE | 2020-02-16 04:22 | PHYS DOC ---
Past Medical History Past Medical History: Anxiety, Cancer, High Cholesterol, Other Additional Past Medical Histor: LEFT ARM, LING, BREAST, NECK CANCER Past Surgical History: Cancer Surgery, Other Additional Past Surgical Histo: LEFT MASECTOMY Smoking Status: Former Smoker Alcohol Use: None Drug Use: None General Adult EDM: Chief Complaint: SHORTNESS OF BREATH HPI: HPI: Patient is a 69 year oldekn-fylb-lob female past medical history of hyperlipidemia breast cancer with metastasis to the lungs presents with a chief complaint of shortness of breath and diffuse body swelling. Patient is currently on hospice. Patient has had shortness of breath since 2100 hrs. There is no associated cough or fever. Patient also has diffuse swelling which started yesterday. Review of Systems: Review of Systems: Constitutional: Denies fever or chills. [] Eyes: Denies change in visual acuity. [] HENT: Denies nasal congestion or sore throat. [] Respiratory: Denies cough positive shortness of breath. [] Cardiovascular: Denies chest pain positive edema. [] GI: Denies abdominal pain, nausea, vomiting, bloody stools or diarrhea. [] : Denies dysuria. [] Musculoskeletal: Denies back pain or joint pain. [] Integument: Denies rash. [] Neurologic: Denies headache, focal weakness or sensory changes. [] Endocrine: Denies polyuria or polydipsia. [] Lymphatic: Denies swollen glands. [] Psychiatric: Denies depression or anxiety. [] Heart Score: Risk Factors: Risk Factors: DM, Current or recent (<one month) smoker, HTN, HLP, family history of CAD, obesity. Risk Scores: Score 0 - 3: 2.5% MACE over next 6 weeks - Discharge Home Score 4 - 6: 20.3% MACE over next 6 weeks - Admit for Clinical Observation Score 7 - 10: 72.7% MACE over next 6 weeks - Early Invasive Strategies Allergies: Allergies: Allergies Coded Allergies Type Severity Reaction Last Updated Verified No Known Drug Allergies 02/15/16 No Physical Exam: PE: Constitutional: Well developed, well nourished, no acute distress, non-toxic appearance. [] HENT: Normocephalic, atraumatic, bilateral external ears normal, oropharynx moist, no oral exudates, nose normal. [] Neck: Normal range of motion, no tenderness, supple, no stridor. [] Cardiovascular:tachycardia Lungs & Thorax: decreased breath sounds tachypnea Abdomen: Bowel sounds normal, soft, no tenderness, no masses, no pulsatile masses. [] Skin: Warm, dry, no erythema, no rash. [] Back: No tenderness, no CVA tenderness. [] Extremities: No tenderness, no cyanosis, no clubbing, ROM intact, no edema. [] Neurologic: Alert and oriented X 3, normal motor function, normal sensory function, no focal deficits noted. [] Psychologic: Affect normal, judgement normal, mood normal. [] EKG: EKG: [] Radiology/Procedures: Radiology/Procedures: [] Impression: HISTORY: Short of breath AP view was taken of the chest. There is a Port-A-Cath on the right. There are pulmonary nodules in the left lung suggesting metastatic disease. There is bowel distention in the abdomen. There is a right pleural effusion with mild increase compared to the study from January 24. There is also a left effusion without change. Heart is normal in size. IMPRESSION: 1. Pulmonary nodules suggesting metastatic disease. 2. Bilateral effusions with increased right effusion. Electronically signed by: Sandeep Berumen MD (02/16/2020 4:10 AM) [id number] Course & Med Decision Making: Course & Med Decision Making Pertinent Labs and Imaging studies reviewed. (See chart for details) [] Dragon Disclaimer: Dragon Disclaimer: This electronic medical record was generated, in whole or in part, using a voice recognition dictation system. Departure Departure Impression: Primary Impression: Lung cancer Additional Impressions: Increasing shortness of breath Pleural effusion Disposition: 09 ADMITTED INPT THIS HOSP Admitting Physician: KEYONNA Condition: STABLE Referrals: RADHA MARIN MD (PCP) DINORAH MARISCAL DO Feb 16, 2020 04:22
[2020-02-16 04:47] LABS: BASO # 0.1 x10^3/uL (0.0-0.2); BASO % 1 % (0-3); EOS # 0.1 x10^3/uL (0.0-0.7); EOS % 1 % (0-3); HEMATOCRIT 35.7 % (36.0-47.0); HEMOGLOBIN 11.2 g/dL (12.0-15.5); LYMPH % 8 % (24-48); MEAN CORPUSCULAR HEMOGLOBIN 26 pg (25-35); MEAN CORPUSCULAR HGB CONC 31 g/dL (31-37); MEAN CORPUSCULAR VOLUME 82 fL (79-100); MONO # 0.9 x10^3/uL (0.0-1.1); MONO % 8 % (0-9); NEUT # 10.2 x10^3/uL (1.8-7.7); NEUT % 83 % (31-73); PLATELET COUNT 321 x10^3/uL (140-400); RED BLOOD COUNT 4.34 x10^6/uL (3.50-5.40); RED CELL DISTRIBUTION WIDTH 14.5 % (11.5-14.5); WHITE BLOOD COUNT 12.2 x10^3/uL (4.0-11.0)
[2020-02-16 04:56] LABS: CREATININE 0.3 mg/dL (0.6-1.0); GFR 266.9; POTASSIUM 4.4 mmol/L (3.5-5.1)
[2020-02-16] MEDS ORDERED: FUROSEMIDE 40 MG/4 ML VIAL. IVP ONE (05:00)
[2020-02-16 05:01] LABS: ALBUMIN 2.3 g/dL (3.4-5.0); ALBUMIN/GLOBULIN RATIO 0.5 (1.0-1.7); TOTAL BILIRUBIN 0.3 mg/dL (0.2-1.0); TOTAL PROTEIN 6.9 g/dL (6.4-8.2)
--- NOTE | 2020-02-16 05:12 | EKG ---
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
--- NOTE | 2020-02-16 08:27 | PDOC1 ---
History and Physical Date of Service: DOS: DATE: 02/16/20 TIME: 08:19 Chief Complaint: Chief Complain: SOB History of Present Illness: HPI: 69 year [id number] female past medical history of hyperlipidemia breast cancer with metastasis to the lungs presents with a chief complaint of shortness of breath and diffuse body swelling. Patient is currently on hospice. Patient has had shortness of breath since last night. There is no associated cough or fever. Patient also endorses diffuse swelling around the same time she started having shortness of breath. Patient also endorses previous thoracentesis that was done to remove fluid. Further questioning from the patient regarding her CODE STATUS she said to refer to her daughter. sanitation worker did talk with Sister Diane and stated that they would like to revoke the hospice to take care of her shortness of breath but it is okay to keep her on DNR status. Currently the patient is saturating on 2 L nasal cannula without any respiratory distress. She is able to complete full sentences.. Past Medical/Surgical History: PMH/PSH: Past Medical History: Anxiety, Cancer, High Cholesterol, LEFT ARM, LING, BREAST, NECK CANCER Past Surgical History: Cancer Surgery, LEFT MASECTOMY Allergies: Allergies: Coded Allergies: No Known Drug Allergies (Unverified , 02/15/16) Family History: Family History: Reviewed and none reported Social History: Social History: Smoking Status: Former Smoker Alcohol Use: None Drug Use: None Current Medications: Current Medications Current Medications Furosemide (Lasix) 40 mg 1X ONCE IVP Last administered on 02/16/20at 05:03; Start 02/16/20 at 05:00; Stop 02/16/20 at 05:02; Status DC Active Scripts Active Reported Xanax (Alprazolam) 1 Mg Tablet 1 Mg PO PRN Q6HRS PRN Aldactone (Spironolactone) 100 Mg Tablet 100 Mg PO DAILY Ambien (Zolpidem Tartrate) 10 Mg Tablet 10 Mg PO HS PRN Lortab 10-325 mg Tablet (Hydrocodone/Acetaminophen) 1 Each Tablet 2TABS PO Q4HRS PRN Gabapentin (Gabapentin) 300 Mg Capsule 300 Mg PO 2TABS PO TID Multi Vitamin Daily (Multivitamin) 1 Each Tablet 1 Each PO DAILY Calcium (Calcium Carbonate) 500 Mg Tablet 500 Mg PO DAILY Aspirin 325 Mg Tablet 325 Mg PO DAILY Senna Laxative Tablet (Sennosides/Docusate Sodium) 1 Each Tablet 1 Each PO DAILY PRN Crestor (Rosuvastatin Calcium) 10 Mg Tablet 10 Mg PO DAILY Fish Oil 1,000 Mg Capsule ([place]-3 Fatty Acids/Fish Oil) 1 Each Capsule 1 Each PO DAILY ROS: Review of Systems Review of System REVIEW OF SYSTEMS: GENERAL: Denies weakness SKIN: No bruising, hair changes or rashes. EYES: No blurred, double or loss of vision. NOSE AND THROAT: No history of nosebleeds, hoarseness or sore throat. HEART: No history of palpitations, chest pain or shortness of breath on exertion. LUNGS: Denies cough, hemoptysis, wheezing or shortness of breath. GASTROINTESTINAL: Denies changes in appetite, nausea, vomiting, diarrhea or constipation. GENITOURINARY: No history of frequency, urgency, hesitancy or nocturia. NEUROLOGIC: Denies history of numbness, tingling, or tremor. PSYCHIATRIC: No history of panic, anxiety or depression. ENDOCRINE: No history of heat or cold intolerance, polyuria or polydipsia. EXTREMITIES: Denies joint pain, pain on walking or stiffness. Physical Exam: Vital Signs: Vital Signs Date Time Temp Pulse Resp B/P (MAP) Pulse Ox O2 Delivery O2 Flow Rate FiO2 02/16/20 06:15 114 22 96/76 (83) 98 Nasal Cannula 2.0 02/16/20 03:39 97.0 97.0 Physcial Exam: GEN: No apparent distress. Alert and oriented HEENT: Normal cephalic, atraumatic, external auditory canals are patent EYES: Extraocular muscles are intact, pupil are equally round and reactive to light and accommodation MUSCULOSKELETAL: Well developed , well nourished, good range of motion ENDOCRINE: No thyromegaly was palpated LYMPHATICS: No cervical chain or axillary nodes were noted HEMATOPOIETIC: No bruising NECK: Supple, no JVD, no thyromegaly was noted LUNGS: Decreased breath sounds in the right lung field HEART: RRR, S!, S2 present. Peripheral pulses intact, no obvious murmurs noted ABDOMEN: Soft, nontender. Positive bowel sounds, no organomegaly, normal bowel sounds EXTREMITIES: Without clubbing, cyanosis, or edema. Pedal pulses intact. Negative Homans sign NEUROLOGIC: Normal speech and tone. A&O x 3, moves all extremities, no obvious focal deficits PSYCHIATRIC: Normal affect, normal mood. Stable SKIN: No ulcerations or rashes, good skin turgor, no jaundice VASCULAR: Good capillary refill, neurovascular bundle appears to be intact Labs: Labs: Laboratory Tests Test 02/16/20 04:40 White Blood Count 12.2 x10^3/uL (4.0-11.0) Red Blood Count 4.34 x10^6/uL (3.50-5.40) Hemoglobin 11.2 g/dL (12.0-15.5) Hematocrit 35.7 % (36.0-47.0) Mean Corpuscular Volume 82 fL (79-100) Mean Corpuscular Hemoglobin 26 pg (25-35) Mean Corpuscular Hemoglobin Concent 31 g/dL (31-37) Red Cell Distribution Width 14.5 % (11.5-14.5) Platelet Count 321 x10^3/uL (140-400) Neutrophils (%) (Auto) 83 % (31-73) Lymphocytes (%) (Auto) 8 % (24-48) Monocytes (%) (Auto) 8 % (0-9) Eosinophils (%) (Auto) 1 % (0-3) Basophils (%) (Auto) 1 % (0-3) Neutrophils # (Auto) 10.2 x10^3/uL (1.8-7.7) Lymphocytes # (Auto) 1.0 x10^3/uL (1.0-4.8) Monocytes # (Auto) 0.9 x10^3/uL (0.0-1.1) Eosinophils # (Auto) 0.1 x10^3/uL (0.0-0.7) Basophils # (Auto) 0.1 x10^3/uL (0.0-0.2) Sodium Level 135 mmol/L (136-145) Potassium Level 4.4 mmol/L (3.5-5.1) Chloride Level 96 mmol/L (98-107) Carbon Dioxide Level 36 mmol/L (21-32) Anion Gap 3 (6-14) Blood Urea Nitrogen 6 mg/dL (7-20) Creatinine 0.3 mg/dL (0.6-1.0) Estimated GFR (Cockcroft-Gault) 266.9 BUN/Creatinine Ratio 20 (6-20) Glucose Level 116 mg/dL (70-99) Calcium Level 9.0 mg/dL (8.5-10.1) Total Bilirubin 0.3 mg/dL (0.2-1.0) Aspartate Amino Transf (AST/SGOT) 32 U/L (15-37) Alanine Aminotransferase (ALT/SGPT) 12 U/L (14-59) Alkaline Phosphatase 57 U/L (46-116) Troponin I Quantitative < 0.017 ng/mL (0.000-0.055) BL-Mpo-S-Type Natriuretic Peptide 132 pg/mL (0-124) Total Protein 6.9 g/dL (6.4-8.2) Albumin 2.3 g/dL (3.4-5.0) Albumin/Globulin Ratio 0.5 (1.0-1.7) Laboratory Tests Test 02/16/20 04:40 White Blood Count 12.2 x10^3/uL (4.0-11.0) Red Blood Count 4.34 x10^6/uL (3.50-5.40) Hemoglobin 11.2 g/dL (12.0-15.5) Hematocrit 35.7 % (36.0-47.0) Mean Corpuscular Volume 82 fL (79-100) Mean Corpuscular Hemoglobin 26 pg (25-35) Mean Corpuscular Hemoglobin Concent 31 g/dL (31-37) Red Cell Distribution Width 14.5 % (11.5-14.5) Platelet Count 321 x10^3/uL (140-400) Neutrophils (%) (Auto) 83 % (31-73) Lymphocytes (%) (Auto) 8 % (24-48) Monocytes (%) (Auto) 8 % (0-9) Eosinophils (%) (Auto) 1 % (0-3) Basophils (%) (Auto) 1 % (0-3) Neutrophils # (Auto) 10.2 x10^3/uL (1.8-7.7) Lymphocytes # (Auto) 1.0 x10^3/uL (1.0-4.8) Monocytes # (Auto) 0.9 x10^3/uL (0.0-1.1) Eosinophils # (Auto) 0.1 x10^3/uL (0.0-0.7) Basophils # (Auto) 0.1 x10^3/uL (0.0-0.2) Sodium Level 135 mmol/L (136-145) Potassium Level 4.4 mmol/L (3.5-5.1) Chloride Level 96 mmol/L (98-107) Carbon Dioxide Level 36 mmol/L (21-32) Anion Gap 3 (6-14) Blood Urea Nitrogen 6 mg/dL (7-20) Creatinine 0.3 mg/dL (0.6-1.0) Estimated GFR (Cockcroft-Gault) 266.9 BUN/Creatinine Ratio 20 (6-20) Glucose Level 116 mg/dL (70-99) Calcium Level 9.0 mg/dL (8.5-10.1) Total Bilirubin 0.3 mg/dL (0.2-1.0) Aspartate Amino Transf (AST/SGOT) 32 U/L (15-37) Alanine Aminotransferase (ALT/SGPT) 12 U/L (14-59) Alkaline Phosphatase 57 U/L (46-116) Troponin I Quantitative < 0.017 ng/mL (0.000-0.055) ID-Bfh-H-Type Natriuretic Peptide 132 pg/mL (0-124) Total Protein 6.9 g/dL (6.4-8.2) Albumin 2.3 g/dL (3.4-5.0) Albumin/Globulin Ratio 0.5 (1.0-1.7) Images: Images CXR IMPRESSION: 1. Pulmonary nodules suggesting metastatic disease. 2. Bilateral effusions with increased right effusion. Assessment/Plan Assessment/Plan Acute hypoxic respiratory distress due to right pleural effusion secondary to metastatic disease Anasarca Hyponatremia and hypochloremia due to volume depletion Prerenal azotemia Severe protein malnutrition Anemia due to chronic disease Reactive leukocytosis History of breast CA with metastatic disease status post left mastectomy Admit to medicine for further management Pulmonary consult for possible thoracentesis IV Lasix as needed Maintain O2 saturation greater than 92% supplementation as needed Strict I's and O's Lovenox for DVT prophylaxis ADA diet Full code Discussed with RN and SW Disposition inpatient management as above. [facility] will be recontacted once pleural effusion has been managed Surrogate decision maker is Diane Advance care planning: A total time of > 17 minutes was spent from 1035 to 1110 face to face in discussion with the patient and sister regarding their goals of care, end of life care, and pleural effusion management. Justifications for Admission Other Justification PEDRO CHADWICK MD Feb 16, 2020 08:27
[2020-02-16] MEDS ORDERED: ACETAMINOPHEN 325 MG TABLET. PO PRN (08:30)
[2020-02-16] MEDS ORDERED: ONDANSETRON PF 4 MG/2 ML VIAL. IVP PRN (08:30)
[2020-02-16] MEDS ORDERED: SENNOSIDES 8.6 MG TABLET PO PRN (08:30)
[2020-02-16] MEDS ORDERED: POTASSIUM CHLORIDE 10MEQ 100 ML IV PRN ×2 (08:30)
[2020-02-16] MEDS ORDERED: MAGNESIUM SULFATE 2GM 50 ML IV SCH (08:30)
[2020-02-16] MEDS ORDERED: POTASSIUM CHLORIDE 20 MEQ TABLET.ER. PO PRN (08:30)
[2020-02-16] MEDS ORDERED: DEXTROSE 50% 25 GM / 50ML DISP.SYRIN. IV PRN (08:30)
[2020-02-16] MEDS ORDERED: DOCUSATE SODIUM 100 MG CAPSULE. PO PRN (08:30)
[2020-02-16] MEDS ORDERED: MAGNESIUM OXIDE 400 MG TABLET PO SCH (09:00)
[2020-02-16] MEDS ORDERED: ELECTROLYTE (NON-ICU) PROTOCOL. MC PRN ×2 (09:00→09:45)
[2020-02-16] MEDS ORDERED: FURO20TA3 PO (09:18)
[2020-02-16] MEDS ORDERED: RISP1TAB3 PO (09:18)
--- NOTE | 2020-02-16 10:20 | NUR ---
YENIFER consulted to see this patient. Pt on bed hold in the ER. Pt currently on 2l 02 and IV Dextrose. Pt current with [facility]. YENIFER called and spoke with pt's sister Diane ([phone]) and Diane stated she wants aggressive care for this patient. iDane stated she will revoke hospice services. Diane stated she wants any amount of time she can have with pt. YENIFER spoke with GONSALO Chakraborty with [facility] ([phone]) and requested she obtain revocation paperwork and fax it to [facility] at [phone]. YENIFER notified Dr. Schaefer and ER nurse. Addendum: 02/17/[address] GONSALO faxed over unsigned revocation paperwork on this patient. YENIFER provided this paperwork to Katelyn with discharge planning as she is following this patient. YENIFER explained that pt or pt's legal guest experience representative (dtr Diane) must sign this paperwork and that a copy should be given to CM as well as faxed to [place]. Copy should be placed on the chart and original needs to be given to patient.
[2020-02-16] MEDS: ENOXAPARIN 40 MG/0.4 ML SYRINGE. SQ SCH (13:00)
--- NOTE | 2020-02-16 14:08 | PDOC ---
PULMONARY PROGRESS NOTES DATE: 02/16/20 TIME: 14:07 Vitals Vital Signs Date Time Temp Pulse Resp B/P (MAP) Pulse Ox O2 Delivery O2 Flow Rate FiO2 02/16/20 09:45 124 24 145/89 (107) 97 Nasal Cannula 2.0 02/16/20 03:39 97.0 97.0 Lungs: Other Cardiovascular: S1 Abdomen: Other Extremities: Other Labs Laboratory Tests Test 02/16/20 04:40 White Blood Count 12.2 x10^3/uL (4.0-11.0) Red Blood Count 4.34 x10^6/uL (3.50-5.40) Hemoglobin 11.2 g/dL (12.0-15.5) Hematocrit 35.7 % (36.0-47.0) Mean Corpuscular Volume 82 fL (79-100) Mean Corpuscular Hemoglobin 26 pg (25-35) Mean Corpuscular Hemoglobin Concent 31 g/dL (31-37) Red Cell Distribution Width 14.5 % (11.5-14.5) Platelet Count 321 x10^3/uL (140-400) Neutrophils (%) (Auto) 83 % (31-73) Lymphocytes (%) (Auto) 8 % (24-48) Monocytes (%) (Auto) 8 % (0-9) Eosinophils (%) (Auto) 1 % (0-3) Basophils (%) (Auto) 1 % (0-3) Neutrophils # (Auto) 10.2 x10^3/uL (1.8-7.7) Lymphocytes # (Auto) 1.0 x10^3/uL (1.0-4.8) Monocytes # (Auto) 0.9 x10^3/uL (0.0-1.1) Eosinophils # (Auto) 0.1 x10^3/uL (0.0-0.7) Basophils # (Auto) 0.1 x10^3/uL (0.0-0.2) Sodium Level 135 mmol/L (136-145) Potassium Level 4.4 mmol/L (3.5-5.1) Chloride Level 96 mmol/L (98-107) Carbon Dioxide Level 36 mmol/L (21-32) Anion Gap 3 (6-14) Blood Urea Nitrogen 6 mg/dL (7-20) Creatinine 0.3 mg/dL (0.6-1.0) Estimated GFR (Cockcroft-Gault) 266.9 BUN/Creatinine Ratio 20 (6-20) Glucose Level 116 mg/dL (70-99) Calcium Level 9.0 mg/dL (8.5-10.1) Total Bilirubin 0.3 mg/dL (0.2-1.0) Aspartate Amino Transf (AST/SGOT) 32 U/L (15-37) Alanine Aminotransferase (ALT/SGPT) 12 U/L (14-59) Alkaline Phosphatase 57 U/L (46-116) Troponin I Quantitative < 0.017 ng/mL (0.000-0.055) CJ-Axt-D-Type Natriuretic Peptide 132 pg/mL (0-124) Total Protein 6.9 g/dL (6.4-8.2) Albumin 2.3 g/dL (3.4-5.0) Albumin/Globulin Ratio 0.5 (1.0-1.7) Laboratory Tests Test 02/16/20 04:40 White Blood Count 12.2 x10^3/uL (4.0-11.0) Red Blood Count 4.34 x10^6/uL (3.50-5.40) Hemoglobin 11.2 g/dL (12.0-15.5) Hematocrit 35.7 % (36.0-47.0) Mean Corpuscular Volume 82 fL (79-100) Mean Corpuscular Hemoglobin 26 pg (25-35) Mean Corpuscular Hemoglobin Concent 31 g/dL (31-37) Red Cell Distribution Width 14.5 % (11.5-14.5) Platelet Count 321 x10^3/uL (140-400) Neutrophils (%) (Auto) 83 % (31-73) Lymphocytes (%) (Auto) 8 % (24-48) Monocytes (%) (Auto) 8 % (0-9) Eosinophils (%) (Auto) 1 % (0-3) Basophils (%) (Auto) 1 % (0-3) Neutrophils # (Auto) 10.2 x10^3/uL (1.8-7.7) Lymphocytes # (Auto) 1.0 x10^3/uL (1.0-4.8) Monocytes # (Auto) 0.9 x10^3/uL (0.0-1.1) Eosinophils # (Auto) 0.1 x10^3/uL (0.0-0.7) Basophils # (Auto) 0.1 x10^3/uL (0.0-0.2) Sodium Level 135 mmol/L (136-145) Potassium Level 4.4 mmol/L (3.5-5.1) Chloride Level 96 mmol/L (98-107) Carbon Dioxide Level 36 mmol/L (21-32) Anion Gap 3 (6-14) Blood Urea Nitrogen 6 mg/dL (7-20) Creatinine 0.3 mg/dL (0.6-1.0) Estimated GFR (Cockcroft-Gault) 266.9 BUN/Creatinine Ratio 20 (6-20) Glucose Level 116 mg/dL (70-99) Calcium Level 9.0 mg/dL (8.5-10.1) Total Bilirubin 0.3 mg/dL (0.2-1.0) Aspartate Amino Transf (AST/SGOT) 32 U/L (15-37) Alanine Aminotransferase (ALT/SGPT) 12 U/L (14-59) Alkaline Phosphatase 57 U/L (46-116) Troponin I Quantitative < 0.017 ng/mL (0.000-0.055) SM-Sbp-S-Type Natriuretic Peptide 132 pg/mL (0-124) Total Protein 6.9 g/dL (6.4-8.2) Albumin 2.3 g/dL (3.4-5.0) Albumin/Globulin Ratio 0.5 (1.0-1.7) Medications Active Scripts Medications Dose Route/Sig Max Daily Dose Days Date Category Risperidone 1 Mg Tablet 1 Tab PO QHS 02/16/20 Reported Furosemide 20 Mg Tablet 20 Mg PO BID 02/16/20 Reported Xanax (Alprazolam) 1 Mg Tablet 1 Mg PO PRN Q6HRS PRN 01/14/17 Reported Aldactone (Spironolactone) 100 Mg Tablet 100 Mg PO DAILY 01/14/17 Reported Ambien (Zolpidem Tartrate) 10 Mg Tablet 10 Mg PO HS PRN 07/05/16 Reported Lortab 10-325 mg Tablet (Hydrocodone/Acetaminophen) 1 Each Tablet 2TABS PO Q4HRS PRN 10/5/16 Reported Gabapentin (Gabapentin) 300 Mg Capsule 300 Mg PO 2TABS PO TID 12/24/13 Reported Multi Vitamin Daily (Multivitamin) 1 Each Tablet 1 Each PO DAILY 08/12/13 Reported Calcium (Calcium Carbonate) 500 Mg Tablet 500 Mg PO DAILY 08/12/13 Reported Aspirin 325 Mg Tablet 325 Mg PO DAILY 08/12/13 Reported Senna Laxative Tablet (Sennosides/Docusate Sodium) 1 Each Tablet 1 Each PO DAILY PRN 05/21/13 Reported Crestor (Rosuvastatin Calcium) 10 Mg Tablet 10 Mg PO DAILY 05/21/13 Reported Fish Oil 1,000 Mg Capsule ([place]-3 Fatty Acids/Fish Oil) 1 Each Capsule 1 Each PO DAILY 05/21/13 Reported Impression . Full note dictated Recurrent pleural effusion, hypoxemic respiratory failure Discussed with Dr. Rueda from interventional radiology we will proceed with Pleurx catheter placement Discussed with patient and family they concur NEIL THORNTON MD Feb 16, 2020 14:08
--- NOTE | 2020-02-16 14:30 | CONS ---
DATE OF CONSULTATION: 02/16/2020 ATTENDING PHYSICIAN: Dr. Schaefer. REASON FOR CONSULTATION: The patient is seen in pulmonary consultation at the request of Dr. Schaefer for increasing shortness of breath, respiratory failure. HISTORY OF PRESENT ILLNESS: The patient is a 69-year-old well known to me with metastatic breast cancer. She last was admitted approximately a week and a half ago. At that time, she came in with abnormal CT, respiratory failure, had significant pleural effusion on the right side and underwent thoracentesis. There were malignant cells. The patient was discharged home on hospice. She presented with increasing shortness of breath over the last 24 hours. No fever, chills or night sweats. She underwent a chest x-ray. I have reviewed that there was a large right sided effusion. She was admitted. I was asked to see her in consultation. PAST MEDICAL HISTORY: Remarkable for: 1. Metastatic breast cancer. 2. History of lung cancer 3. Hyperlipidemia. 4. Hypercholesterolemia. 5. COPD. PAST SURGICAL HISTORY: Left mastectomy, previous laminectomy. She has had previous laminectomy and resection. Pathology was compatible with metastatic disease to the spine. REVIEW OF SYSTEMS: CONSTITUTIONAL: No fever or chills. EYES: No change in visual acuity. HENT: No nasal congestion or sore throat. PULMONARY: As indicated above. CARDIOVASCULAR: No chest pain. No pressure. GASTROINTESTINAL: No nausea, vomiting, diarrhea. GENITOURINARY: No dysuria or frequency. MUSCULOSKELETAL: No localized muscle aches or joint pains. SKIN: No new skin rashes. NEUROLOGIC: No headaches, diplopia or blurred vision. ALLERGIES: No known drug allergies. SOCIAL HISTORY: She is currently not smoking. Lives with her daughter. CURRENT MEDICATION: List was reviewed. PHYSICAL EXAMINATION: GENERAL: The patient was seen in the Emergency Room. Her respiratory rate was high. She was having some difficulty breathing, unable to complete full sentences, currently on 2 liters of oxygen supplementation. HEENT: Eyes, the sclerae were nonicteric. NECK: Jugular venous distention could not be assessed. LUNGS: Diminished breath sounds in the right. Poor air flow. CARDIOVASCULAR: Regular rate and rhythm with S1, S2, no S3. ABDOMEN: Soft, obese. EXTREMITIES: No clubbing, cyanosis. Minimal edema. NEUROLOGICAL: The patient was awake, alert, following commands. A detailed neuro exam was not performed. LABORATORY DATA: White count was 12.2, hemoglobin of 11, hematocrit of 35, platelet count was noted. Chest x-ray as indicated above. IMPRESSION: 1. Progressive dyspnea secondary to increasing malignant pleural effusion on the right. 2. Metastatic breast cancer. 3. Acute hypoxemic respiratory failure, multifactorial. 4. Bilateral pulmonary masses seen on previous CT, suspect metastatic disease from breast. 5. History of lung cancer. 6. Status post mastectomy. 7. Significant Anasarca. 8. Metastatic disease to C5 through C7, status post resection. Biopsy revealed metastatic disease. 9. Obesity. 10. Chronic obstructive pulmonary disease with exacerbation. 11. Tobacco dependence, in remission. DISCUSSION: Justification for inpatient admission includes significant dyspnea. The patient using accessory muscles to breathe and hypoxemia along with increasing right sided pleural effusion. PLAN: 1. Initiate IV Lasix. 2. Case discussed with Interventional Radiology, the patient will benefit from PleurX catheter placement. 3. Continue home meds. 4. Continue support care. 5. DVT prophylaxis. I do appreciate the privilege in sharing in the patient's care. NEIL THORNTON MD DR: CHOLO/nam JOB#: [id number] / [id number]
[2020-02-16 15:00] VITALS: BP_SYST 119; BP_SYST 162; BP_DIAS 84; BP_DIAS 90
[2020-02-16] MEDS ORDERED: MORPHINE SULFATE 2 MG/ML VIAL. IV PRN (15:30)
[2020-02-16] MEDS ORDERED: ALPRAZolam 0.5 MG TABLET PO PRN (15:45)
[2020-02-16] MEDS ORDERED: ZOLPIDEM 5 MG TABLET. PO PRN (16:00)
[2020-02-16 19:10] VITALS: BP 127/64
[2020-02-16 20:03] VITALS: BP 145/82
[2020-02-16 20:10] VITALS: BP 145/82
[2020-02-16 23:20] VITALS: BP 163/82
[2020-02-17 03:28] VITALS: BP 158/86
--- NOTE | 2020-02-17 05:55 | PDOC ---
PROGRESS NOTES Date of Service: DATE: 02/17/20 TIME: 05:55 Chief Complaint Chief Complaint Images: Images CXR IMPRESSION: 1. Pulmonary nodules suggesting metastatic disease. 2. Bilateral effusions with increased right effusion. impression Assessment/Plan Acute hypoxic respiratory distress due to right pleural effusion secondary to metastatic disease Anasarca Hyponatremia and hypochloremia due to volume depletion Prerenal azotemia Severe protein malnutrition Anemia due to chronic disease Reactive leukocytosis History of breast CA with metastatic disease status post left mastectomy plan Admit to medicine for further management Pulmonary consult for possible thoracentesis IV Lasix as needed Maintain O2 saturation greater than 92% supplementation as needed Strict I's and O's Lovenox for DVT prophylaxis ADA diet Full code Discussed with RN and SW Disposition inpatient management as above. [facility] will be recontacted once pleural effusion has been managed Surrogate decision maker is sister Diane d/w RN History of Present Illness History of Present Illness History of Present Illness: HPI: 69 year oldthe-cfwd-mrv female past medical history of hyperlipidemia breast cancer with metastasis to the lungs presents with a chief complaint of shortness of naldo ath and diffuse body swelling. Patient is currently on hospice. Patient has had shortness of breath since last night. There is no associated cough or fever. Patient also endorses diffuse swelling around the same time she started having shortness of breath. Patient also endorses previous thoracentesis that was done to remove fluid. Further questioning from the patient regarding her CODE STATUS she said to refer to her daughter. 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 Currently the patient is saturating on 2 L nasal cannula without any respiratory distress. She is able to complete full sentences.. Past Medical/Surgical History: PMH/PSH: Past Medical History: Anxiety, Cancer, High Cholesterol, LEFT ARM, LING, B REAST, NECK CANCER Past Surgical History: Cancer Surgery, LEFT MASECTOMY Allergies: Allergies: Coded Allergies: No Known Drug Allergies (Unverified , 02/15/16) Family History: Family History: Reviewed and none reported Social History: Social History: Smoking Status: Former Smoker Alcohol Use: None Drug Use: None Vitals Vitals Vital Signs Date Time Temp Pulse Resp B/P (MAP) Pulse Ox O2 Delivery O2 Flow Rate FiO2 02/17/20 03:28 98.3 131 32 158/86 (110) 92 Nasal Cannula 3.0 98.3 Physical Exam Physical Exam Physcial Exam: GEN: No apparent distress. SLEEPY NAD HEENT: Normal cephalic, atraumatic, external auditory canals are patent EYES: Extraocular muscles are intact, pupil are equally round and reactive to light and accommodation MUSCULOSKELETAL: Well developed , well nourished, good range of motion ENDOCRINE: No thyromegaly was palpated LYMPHATICS: No cervical chain or axillary nodes were noted HEMATOPOIETIC: No bruising NECK: Supple, no JVD, no thyromegaly was noted LUNGS: Decreased breath sounds in the right lung field HEART: RRR, S!, S2 present. Peripheral pulses intact, no obvious murmurs noted ABDOMEN: Soft, nontender. Positive bowel sounds, no organomegaly, normal bowel sounds EXTREMITIES: Without clubbing, cyanosis, or edema. Pedal pulses intact. Negative Homans sign PSYCHIATRIC: Normal affect, normal mood. Stable SKIN: No ulcerations or rashes, good skin turgor, no jaundice VASCULAR: Good capillary refill, neurovascular bundle appears to be intact Lungs: Other Labs LABS REASON: sob PROCEDURE: CHEST AP ONLY AP chest. HISTORY: Short of breath AP view was taken of the chest. There is a Port-A-Cath on the right. There are pulmonary nodules in the left lung suggesting metastatic disease. There is bowel distention in the abdomen. There is a right pleural effusion with mild increase compared to the study from January 24. There is also a left effusion without change. Heart is normal in size. IMPRESSION: 1. Pulmonary nodules suggesting metastatic disease. 2. Bilateral effusions with increased right effusion. Electronically signed by: Sandeep Snider MD (02/16/2020 4:10 AM) [id number] DICTATED and SIGNED BY: SANDEEP SNIDER MD DATE: 02/16/20 0410 Assessment and Plan Assessmemt and Plan Problems Medical Problems: (1) Increasing shortness of breath Status: Acute (2) Lung cancer Status: Acute (3) Pleural effusion Status: Acute Comment Review of Relevant I have reviewed the following items cathy (where applicable) has been applied. Labs Laboratory Tests Test 02/16/20 04:40 White Blood Count 12.2 x10^3/uL (4.0-11.0) Red Blood Count 4.34 x10^6/uL (3.50-5.40) Hemoglobin 11.2 g/dL (12.0-15.5) Hematocrit 35.7 % (36.0-47.0) Mean Corpuscular Volume 82 fL (79-100) Mean Corpuscular Hemoglobin 26 pg (25-35) Mean Corpuscular Hemoglobin Concent 31 g/dL (31-37) Red Cell Distribution Width 14.5 % (11.5-14.5) Platelet Count 321 x10^3/uL (140-400) Neutrophils (%) (Auto) 83 % (31-73) Lymphocytes (%) (Auto) 8 % (24-48) Monocytes (%) (Auto) 8 % (0-9) Eosinophils (%) (Auto) 1 % (0-3) Basophils (%) (Auto) 1 % (0-3) Neutrophils # (Auto) 10.2 x10^3/uL (1.8-7.7) Lymphocytes # (Auto) 1.0 x10^3/uL (1.0-4.8) Monocytes # (Auto) 0.9 x10^3/uL (0.0-1.1) Eosinophils # (Auto) 0.1 x10^3/uL (0.0-0.7) Basophils # (Auto) 0.1 x10^3/uL (0.0-0.2) Sodium Level 135 mmol/L (136-145) Potassium Level 4.4 mmol/L (3.5-5.1) Chloride Level 96 mmol/L (98-107) Carbon Dioxide Level 36 mmol/L (21-32) Anion Gap 3 (6-14) Blood Urea Nitrogen 6 mg/dL (7-20) Creatinine 0.3 mg/dL (0.6-1.0) Estimated GFR (Cockcroft-Gault) 266.9 BUN/Creatinine Ratio 20 (6-20) Glucose Level 116 mg/dL (70-99) Calcium Level 9.0 mg/dL (8.5-10.1) Total Bilirubin 0.3 mg/dL (0.2-1.0) Aspartate Amino Transf (AST/SGOT) 32 U/L (15-37) Alanine Aminotransferase (ALT/SGPT) 12 U/L (14-59) Alkaline Phosphatase 57 U/L (46-116) Troponin I Quantitative < 0.017 ng/mL (0.000-0.055) IB-Gka-R-Type Natriuretic Peptide 132 pg/mL (0-124) Total Protein 6.9 g/dL (6.4-8.2) Albumin 2.3 g/dL (3.4-5.0) Albumin/Globulin Ratio 0.5 (1.0-1.7) Medications Current Medications Furosemide (Lasix) 40 mg 1X ONCE IVP Last administered on 02/16/20at 05:03; Start 02/16/20 at 05:00; Stop 02/16/20 at 05:02; Status DC Sennosides (Senna) 17.2 mg PRN BID PRN PO CONSTIPATION; Start 02/16/20 at 08:30 Docusate Sodium (Colace) 100 mg PRN DAILY PRN PO HARD STOOLS; Start 02/16/20 at 08:30 Ondansetron HCl (Zofran) 4 mg PRN Q6HRS PRN IVP NAUSEA/VOMITING; Start 02/16/20 at 08:30 Potassium Chloride (Klor-Con) 40 meq 1X PRN PO PER PROTOCOL; Start 02/16/20 at 08:30; Status Cancel Magnesium Oxide (Magnesium Oxide) 400 mg BID PO ; Start 02/16/20 at 09:00; Stop 02/16/20 at 09:43; Status DC Potassium Chloride/Water 100 ml @ 100 mls/hr PRN Q1HR PRN IV SEE COMMENTS; Start 02/16/20 at 08:30; Status Cancel Magnesium Sulfate 50 ml @ 25 mls/hr Q24H IV ; Start 02/16/20 at 08:30; Stop 02/18/20 at 10:29; Status UNV Potassium Chloride/Water 100 ml @ 100 mls/hr Q1H PRN IV low k; Start 02/16/20 at 08:30; Status UNV Dextrose (Dextrose 50%-Water Syringe) 12.5 gm PRN Q15MIN PRN IV SEE COMMENTS; Start 02/16/20 at 08:30 Acetaminophen (Tylenol) 650 mg PRN Q4HRS PRN PO TEMP OVER 100.4F OR MILD PAIN; Start 02/16/20 at 08:30 Info (Non-Icu Electrolyte Protocol) 1 ea CONT PRN PRN MC SEE COMMENTS; Start 02/16/20 at 09:00 Info (Non-Icu Electrolyte Protocol) 1 ea CONT PRN PRN MC SEE COMMENTS; Start 02/16/20 at 09:45; Status Cancel Enoxaparin Sodium (Lovenox 40mg Syringe) 40 mg Q24H SQ ; Start 02/16/20 at 13:00 Zolpidem Tartrate (Ambien) 5 mg PRN QHS PRN PO INSOMNIA; Start 02/16/20 at 16:00 Morphine Sulfate (Morphine Sulfate) 2 mg PRN Q2HR PRN IV MODERATE TO SEVERE PAIN; Start 02/16/20 at 15:30 Alprazolam (Xanax) 0.5 mg PRN Q6HRS PRN PO ANXIETY / AGITATION Last administered on 02/16/20at 16:03; Start 02/16/20 at 15:45 Active Scripts Active Reported Risperidone 1 Mg Tablet 1 Tab PO QHS Furosemide 20 Mg Tablet 20 Mg PO BID Xanax (Alprazolam) 1 Mg Tablet 1 Mg PO PRN Q6HRS PRN Aldactone (Spironolactone) 100 Mg Tablet 100 Mg PO DAILY Ambien (Zolpidem Tartrate) 10 Mg Tablet 10 Mg PO HS PRN Lortab 10-325 mg Tablet (Hydrocodone/Acetaminophen) 1 Each Tablet 2TABS PO Q4HRS PRN Gabapentin (Gabapentin) 300 Mg Capsule 300 Mg PO 2TABS PO TID Multi Vitamin Daily (Multivitamin) 1 Each Tablet 1 Each PO DAILY Calcium (Calcium Carbonate) 500 Mg Tablet 500 Mg PO DAILY Aspirin 325 Mg Tablet 325 Mg PO DAILY Senna Laxative Tablet (Sennosides/Docusate Sodium) 1 Each Tablet 1 Each PO DAILY PRN Crestor (Rosuvastatin Calcium) 10 Mg Tablet 10 Mg PO DAILY Fish Oil 1,000 Mg Capsule ([place]-3 Fatty Acids/Fish Oil) 1 Each Capsule 1 Each PO DAILY Vitals/I & O Vital Sign - Last 24 Hours 02/16/20 02/16/20 02/16/20 02/16/20 07:45 08:45 09:45 14:33 Pulse 118 124 124 Resp 23 24 24 B/P (MAP) 134/80 (98) 150/83 (105) 145/89 (107) Pulse Ox 99 96 97 O2 Delivery Nasal Cannula Nasal Cannula Nasal Cannula Nasal Cannula O2 Flow Rate 2.0 2.0 2.0 3.0 02/16/20 02/16/20 02/16/20 02/16/20 15:00 19:10 20:03 20:10 Temp 98.5 98.1 98.1 98.5 98.1 98.1 Pulse 118 133 133 Resp 16 31 B/P (MAP) 162/90 (114) () 145/82 (103) 145/82 (103) Pulse Ox 95 94 94 O2 Delivery Room Air Nasal Cannula Nasal Cannula O2 Flow Rate 3.0 3.0 02/16/20 02/16/20 02/17/20 20:13 23:20 03:28 Temp 98.2 98.3 98.2 98.3 Pulse 121 131 Resp 28 32 B/P (MAP) 163/82 (109) 158/86 (110) Pulse Ox 94 92 O2 Delivery Nasal Cannula Nasal Cannula Nasal Cannula O2 Flow Rate 3.0 3.0 3.0 Intake and Output 02/16/20 02/16/20 02/17/20 14:59 22:59 06:59 Intake Total 0 ml Output Total 1500 ml Balance -1500 ml 0 ml Justicifation of Admission Dx: Justifications for Admission: Justification of Admission Dx: Yes Respiratory Failure: Severe Vent Deficit SUSI MAYORGA MD Feb 17, 2020 05:55
[2020-02-17 07:00] VITALS: BP 142/82
--- NOTE | 2020-02-17 08:23 | PDOC ---
PULMONARY PROGRESS NOTES DATE: 02/17/20 TIME: 08:22 Subjective Remains on N/C oxygen planned for PleurX cath today no increased SOB or cough Vitals Vital Signs Date Time Temp Pulse Resp B/P (MAP) Pulse Ox O2 Delivery O2 Flow Rate FiO2 02/17/20 07:25 Nasal Cannula 3.0 02/17/20 07:00 98.1 116 30 142/82 (102) 94 98.1 ROS: No Nausea, No Chest Pain, No Abdominal Pain, No Increase Cough Lungs: Other Cardiovascular: S1 Abdomen: Other Extremities: Other Skin: Warm, Dry Labs Laboratory Tests Test 02/16/20 04:40 White Blood Count 12.2 x10^3/uL (4.0-11.0) Red Blood Count 4.34 x10^6/uL (3.50-5.40) Hemoglobin 11.2 g/dL (12.0-15.5) Hematocrit 35.7 % (36.0-47.0) Mean Corpuscular Volume 82 fL (79-100) Mean Corpuscular Hemoglobin 26 pg (25-35) Mean Corpuscular Hemoglobin Concent 31 g/dL (31-37) Red Cell Distribution Width 14.5 % (11.5-14.5) Platelet Count 321 x10^3/uL (140-400) Neutrophils (%) (Auto) 83 % (31-73) Lymphocytes (%) (Auto) 8 % (24-48) Monocytes (%) (Auto) 8 % (0-9) Eosinophils (%) (Auto) 1 % (0-3) Basophils (%) (Auto) 1 % (0-3) Neutrophils # (Auto) 10.2 x10^3/uL (1.8-7.7) Lymphocytes # (Auto) 1.0 x10^3/uL (1.0-4.8) Monocytes # (Auto) 0.9 x10^3/uL (0.0-1.1) Eosinophils # (Auto) 0.1 x10^3/uL (0.0-0.7) Basophils # (Auto) 0.1 x10^3/uL (0.0-0.2) Sodium Level 135 mmol/L (136-145) Potassium Level 4.4 mmol/L (3.5-5.1) Chloride Level 96 mmol/L (98-107) Carbon Dioxide Level 36 mmol/L (21-32) Anion Gap 3 (6-14) Blood Urea Nitrogen 6 mg/dL (7-20) Creatinine 0.3 mg/dL (0.6-1.0) Estimated GFR (Cockcroft-Gault) 266.9 BUN/Creatinine Ratio 20 (6-20) Glucose Level 116 mg/dL (70-99) Calcium Level 9.0 mg/dL (8.5-10.1) Total Bilirubin 0.3 mg/dL (0.2-1.0) Aspartate Amino Transf (AST/SGOT) 32 U/L (15-37) Alanine Aminotransferase (ALT/SGPT) 12 U/L (14-59) Alkaline Phosphatase 57 U/L (46-116) Troponin I Quantitative < 0.017 ng/mL (0.000-0.055) AE-Vnh-D-Type Natriuretic Peptide 132 pg/mL (0-124) Total Protein 6.9 g/dL (6.4-8.2) Albumin 2.3 g/dL (3.4-5.0) Albumin/Globulin Ratio 0.5 (1.0-1.7) Medications Active Scripts Medications Dose Route/Sig Max Daily Dose Days Date Category Risperidone 1 Mg Tablet 1 Tab PO QHS 02/16/20 Reported Furosemide 20 Mg Tablet 20 Mg PO BID 02/16/20 Reported Xanax (Alprazolam) 1 Mg Tablet 1 Mg PO PRN Q6HRS PRN 01/14/17 Reported Aldactone (Spironolactone) 100 Mg Tablet 100 Mg PO DAILY 01/14/17 Reported Ambien (Zolpidem Tartrate) 10 Mg Tablet 10 Mg PO HS PRN 07/05/16 Reported Lortab 10-325 mg Tablet (Hydrocodone/Acetaminophen) 1 Each Tablet 2TABS PO Q4HRS PRN 02/01/16 Reported Gabapentin (Gabapentin) 300 Mg Capsule 300 Mg PO 2TABS PO TID 12/24/13 Reported Multi Vitamin Daily (Multivitamin) 1 Each Tablet 1 Each PO DAILY 08/12/13 Reported Calcium (Calcium Carbonate) 500 Mg Tablet 500 Mg PO DAILY 08/12/13 Reported Aspirin 325 Mg Tablet 325 Mg PO DAILY 08/12/13 Reported Senna Laxative Tablet (Sennosides/Docusate Sodium) 1 Each Tablet 1 Each PO DAILY PRN 05/21/13 Reported Crestor (Rosuvastatin Calcium) 10 Mg Tablet 10 Mg PO DAILY 05/21/13 Reported Fish Oil 1,000 Mg Capsule ([place]-3 Fatty Acids/Fish Oil) 1 Each Capsule 1 Each PO DAILY 05/21/13 Reported Comments CXR IMPRESSION: 1. Pulmonary nodules suggesting metastatic disease. 2. Bilateral effusions with increased right effusion. Impression . IMPRESSION: 1. Progressive dyspnea secondary to increasing malignant pleural effusion on the right. 2. Metastatic breast cancer. 3. Acute hypoxemic respiratory failure, multifactorial. 4. Bilateral pulmonary masses seen on previous CT, suspect metastatic disease from breast. 5. History of lung cancer. 6. Status post mastectomy. 7. Significant Anasarca. 8. Metastatic disease to C5 through C7, status post resection. Biopsy revealed metastatic disease. 9. Obesity. 10. Chronic obstructive pulmonary disease with exacerbation. 11. Tobacco dependence, in remission. Plan . Continue supplemental oxygen S/P thom do much improvement IR planned to place PleurX cath today DVT/GI PPX Ok to D/C home today after PleurX cath placement D/W NEIL ROSALES MD Feb 17, 2020 08:22
[2020-02-17] MEDS: ENOXAPARIN 40 MG/0.4 ML SYRINGE. SQ SCH (09:33)
[2020-02-17] MEDS ORDERED: LIDOCAINE 1%/EPI 1:100,000 20 ML VIAL. ONE (10:56)
[2020-02-17 11:00] VITALS: BP 144/81
[2020-02-17] MEDS ORDERED: MIDAZOLAM HCL/PF 2 MG/2 ML VIAL. IV ONE (11:00)
[2020-02-17] MEDS ORDERED: fentaNYL PF VIAL 100 MCG/2 ML VIAL IV ONE (11:00)
[2020-02-17] MEDS ORDERED: MIDAZOLAM HCL/PF 2 MG/2 ML VIAL. ONE (11:00)
[2020-02-17] MEDS ORDERED: ceFAZolin SODIUM IV Push 1 GM VIAL. IVP ONE (11:00)
[2020-02-17] MEDS ORDERED: LIDOCAINE 1%/EPI 1:100,000 20 ML VIAL. SQ ONE (11:00)
[2020-02-17] MEDS ORDERED: fentaNYL PF VIAL 100 MCG/2 ML VIAL ONE (11:01)
--- NOTE | 2020-02-17 12:47 | NUR ---
Patient at 1205, verified with another nurse CAL Betts. Notified Dr. Beavers at 1226, nursing supervisor rough end Jayleen at 1211. [facility] referral call placed.
--- NOTE | 2020-02-17 21:28 | PDOC3 ---
Discharge Summary Date of Admission: Feb 16, 2020 Date of Discharge: Feb 17, 2020 Follow-Up: Other () Admitting Diagnosis comment: cause of , hospital summary Assessment/Plan Acute hypoxic respiratory distress due to right pleural effusion secondary to metastatic disease Anasarca Hyponatremia and hypochloremia due to volume depletion Prerenal azotemia Severe protein malnutrition Anemia due to chronic disease Reactive leukocytosis History of breast CA with metastatic disease status post left mastectomy plan Admit to medicine for further management Pulmonary consult for possible thoracentesis IV Lasix as needed Maintain O2 saturation greater than 92% supplementation as needed Strict I's and O's Lovenox for DVT prophylaxis ADA diet Full code Discussed with RN and SW Disposition inpatient management as above. [facility] will be recontacted once pleural effusion has been managed Surrogate decision maker is sister Diane d/w RN d/c time 25 min History of Present Illness History of Present Illness History of Present Illness: HPI: 69 year oldxzt-dpoj-lfm female past medical history of hyperlipidemia breast cancer with metastasis to the lungs presents with a chief complaint of shortness of breath and diffuse body swelling. Patient is currently on hospice. Patient has had shortness of breath since last night. There is no associated cough or fever. Patient also endorses diffuse swelling around the same time she started having shortness of breath. Patient also endorses previous thoracentesis that was done to remove fluid. Further questioning from the patient regarding her CODE STATUS she said to refer to her daughter. 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 Currently the patient is saturating on 2 L nasal cannula without any respiratory distress. She is able to complete full sentences.. Past Medical/Surgical History: PMH/PSH: Past Medical History: Anxiety, Cancer, High Cholesterol, LEFT ARM, LING, BREAST, NECK CANCER Past Surgical History: Cancer Surgery, LEFT MASECTOMY Allergies: Allergies: Coded Allergies: No Known Drug Allergies (Unverified , 02/15/16) Family History: Family History: Reviewed and none reported Social History: Social History: Smoking Status: Former Smoker Alcohol Use: None Drug Use: None Vitals Vitals Vital Signs Date Time Temp Pulse Resp B/P (MAP) Pulse Ox O2 Delivery O2 Flow Rate FiO2 02/17/20 03:28 98.3 131 32 158/86 (110) 92 Nasal Cannula 3.0 98.3 Physical Exam Physical Exam Physcial Exam: GEN: No apparent distress. SLEEPY NAD HEENT: Normal cephalic, atraumatic, external auditory canals are patent EYES: Extraocular muscles are intact, pupil are equally round and reactive to light and accommodation MUSCULOSKELETAL: Well developed , well nourished, good range of motion ENDOCRINE: No thyromegaly was palpated LYMPHATICS: No cervical chain or axillary nodes were noted HEMATOPOIETIC: No bruising NECK: Supple, no JVD, no thyromegaly was noted LUNGS: Decreased breath sounds in the right lung field FINAL DIAGNOSIS Problems Medical Problems: (1) Increasing shortness of breath Status: Acute (2) Lung cancer Status: Acute (3) Pleural effusion Status: Acute Brief Hospital Course Ms. Shah is a 69 old [sex] who presented with [widely metastatic breast cancer, hypoxia ] CONDITION AT DISCHARGE: / Discharge Medications Current Medications Furosemide (Lasix) 40 mg 1X ONCE IVP Last administered on 02/16/20at 05:03; Start 02/16/20 at 05:00; Stop 02/16/20 at 05:02; Status DC Sennosides (Senna) 17.2 mg PRN BID PRN PO CONSTIPATION; Start 02/16/20 at 08:30; Stop 02/17/20 at 16:18; Status DC Docusate Sodium (Colace) 100 mg PRN DAILY PRN PO HARD STOOLS; Start 02/16/20 at 08:30; Stop 02/17/20 at 16:18; Status DC Ondansetron HCl (Zofran) 4 mg PRN Q6HRS PRN IVP NAUSEA/VOMITING; Start 02/16/20 at 08:30; Stop 02/17/20 at 16:18; Status DC Potassium Chloride (Klor-Con) 40 meq 1X PRN PO PER PROTOCOL; Start 02/16/20 at 08:30; Status Cancel Magnesium Oxide (Magnesium Oxide) 400 mg BID PO ; Start 02/16/20 at 09:00; Stop 02/16/20 at 09:43; Status DC Potassium Chloride/Water 100 ml @ 100 mls/hr PRN Q1HR PRN IV SEE COMMENTS; Start 02/16/20 at 08:30; Status Cancel Magnesium Sulfate 50 ml @ 25 mls/hr Q24H IV ; Start 02/16/20 at 08:30; Stop 02/18/20 at 10:29; Status UNV Potassium Chloride/Water 100 ml @ 100 mls/hr Q1H PRN IV low k; Start 02/16/20 at 08:30; Status UNV Dextrose (Dextrose 50%-Water Syringe) 12.5 gm PRN Q15MIN PRN IV SEE COMMENTS; Start 02/16/20 at 08:30; Stop 02/17/20 at 16:18; Status DC Acetaminophen (Tylenol) 650 mg PRN Q4HRS PRN PO TEMP OVER 100.4F OR MILD PAIN; Start 02/16/20 at 08:30; Stop 02/17/20 at 16:18; Status DC Info (Non-Icu Electrolyte Protocol) 1 ea CONT PRN PRN MC SEE COMMENTS; Start 02/16/20 at 09:00; Stop 02/17/20 at 16:18; Status DC Info (Non-Icu Electrolyte Protocol) 1 ea CONT PRN PRN MC SEE COMMENTS; Start 02/16/20 at 09:45; Status Cancel Enoxaparin Sodium (Lovenox 40mg Syringe) 40 mg Q24H SQ ; Start 02/16/20 at 13:00; Stop 02/17/20 at 16:18; Status DC Zolpidem Tartrate (Ambien) 5 mg PRN QHS PRN PO INSOMNIA; Start 02/16/20 at 16:00; Stop 02/17/20 at 16:18; Status DC Morphine Sulfate (Morphine Sulfate) 2 mg PRN Q2HR PRN IV MODERATE TO SEVERE PAIN; Start 02/16/20 at 15:30; Stop 02/17/20 at 16:18; Status DC Alprazolam (Xanax) 0.5 mg PRN Q6HRS PRN PO ANXIETY / AGITATION Last administered on 02/16/20at 16:03; Start 02/16/20 at 15:45; Stop 02/17/20 at 16:18; Status DC Lidocaine/ Epinephrine (LIDOCAINE 1%-EPI 1:100,000 Multi-Dose) 20 ml STK-MED ONCE .ROUTE ; Start 02/17/20 at 10:56; Stop 02/17/20 at 10:56; Status DC Midazolam HCl (Versed) 2 mg STK-MED ONCE .ROUTE ; Start 02/17/20 at 11:00; Stop 02/17/20 at 11:00; Status DC Fentanyl Citrate (Fentanyl 2ml Vial) 100 mcg STK-MED ONCE .ROUTE ; Start 02/17/20 at 11:01; Stop 02/17/20 at 11:02; Status DC Cefazolin Sodium/ Dextrose 0 ml @ As Directed STK-MED ONCE IV ; Start 02/17/20 at 11:01; Stop 02/17/20 at 11:02; Status DC Midazolam HCl (Versed) 2 mg 1X ONCE IV ; Start 02/17/20 at 11:00; Stop 02/17/20 at 12:29; Status DC Fentanyl Citrate (Fentanyl 2ml Vial) 100 mcg 1X ONCE IV ; Start 02/17/20 at 11:00; Stop 02/17/20 at 12:29; Status DC Lidocaine/ Epinephrine (LIDOCAINE 1%-EPI 1:100,000 Multi-Dose) 20 ml 1X ONCE SQ ; Start 02/17/20 at 11:00; Stop 02/17/20 at 12:29; Status DC Cefazolin Sodium (Ancef) 2 gm 1X ONCE IVP ; Start 02/17/20 at 11:00; Stop 02/17/20 at 12:29; Status DC Active Scripts Active Reported Risperidone 1 Mg Tablet 1 Tab PO QHS Furosemide 20 Mg Tablet 20 Mg PO BID Xanax (Alprazolam) 1 Mg Tablet 1 Mg PO PRN Q6HRS PRN Aldactone (Spironolactone) 100 Mg Tablet 100 Mg PO DAILY Ambien (Zolpidem Tartrate) 10 Mg Tablet 10 Mg PO HS PRN Lortab 10-325 mg Tablet (Hydrocodone/Acetaminophen) 1 Each Tablet 2TABS PO Q4HRS PRN Gabapentin (Gabapentin) 300 Mg Capsule 300 Mg PO 2TABS PO TID Multi Vitamin Daily (Multivitamin) 1 Each Tablet 1 Each PO DAILY Calcium (Calcium Carbonate) 500 Mg Tablet 500 Mg PO DAILY Aspirin 325 Mg Tablet 325 Mg PO DAILY Senna Laxative Tablet (Sennosides/Docusate Sodium) 1 Each Tablet 1 Each PO DAILY PRN Crestor (Rosuvastatin Calcium) 10 Mg Tablet 10 Mg PO DAILY Fish Oil 1,000 Mg Capsule ([place]-3 Fatty Acids/Fish Oil) 1 Each Capsule 1 Each PO DAILY Vital Signs Vital Signs Date Time Temp Pulse Resp B/P (MAP) Pulse Ox O2 Delivery O2 Flow Rate FiO2 02/17/20 11:00 97.9 114 28 144/81 (102) 94 Nasal Cannula 3.0 97.9 Labs Laboratory Tests Test 02/16/20 04:40 White Blood Count 12.2 x10^3/uL (4.0-11.0) Red Blood Count 4.34 x10^6/uL (3.50-5.40) Hemoglobin 11.2 g/dL (12.0-15.5) Hematocrit 35.7 % (36.0-47.0) Mean Corpuscular Volume 82 fL (79-100) Mean Corpuscular Hemoglobin 26 pg (25-35) Mean Corpuscular Hemoglobin Concent 31 g/dL (31-37) Red Cell Distribution Width 14.5 % (11.5-14.5) Platelet Count 321 x10^3/uL (140-400) Neutrophils (%) (Auto) 83 % (31-73) Lymphocytes (%) (Auto) 8 % (24-48) Monocytes (%) (Auto) 8 % (0-9) Eosinophils (%) (Auto) 1 % (0-3) Basophils (%) (Auto) 1 % (0-3) Neutrophils # (Auto) 10.2 x10^3/uL (1.8-7.7) Lymphocytes # (Auto) 1.0 x10^3/uL (1.0-4.8) Monocytes # (Auto) 0.9 x10^3/uL (0.0-1.1) Eosinophils # (Auto) 0.1 x10^3/uL (0.0-0.7) Basophils # (Auto) 0.1 x10^3/uL (0.0-0.2) Sodium Level 135 mmol/L (136-145) Potassium Level 4.4 mmol/L (3.5-5.1) Chloride Level 96 mmol/L (98-107) Carbon Dioxide Level 36 mmol/L (21-32) Anion Gap 3 (6-14) Blood Urea Nitrogen 6 mg/dL (7-20) Creatinine 0.3 mg/dL (0.6-1.0) Estimated GFR (Cockcroft-Gault) 266.9 BUN/Creatinine Ratio 20 (6-20) Glucose Level 116 mg/dL (70-99) Calcium Level 9.0 mg/dL (8.5-10.1) Total Bilirubin 0.3 mg/dL (0.2-1.0) Aspartate Amino Transf (AST/SGOT) 32 U/L (15-37) Alanine Aminotransferase (ALT/SGPT) 12 U/L (14-59) Alkaline Phosphatase 57 U/L (46-116) Troponin I Quantitative < 0.017 ng/mL (0.000-0.055) QY-Prt-[id number]-Type Natriuretic Peptide 132 pg/mL (0-124) Total Protein 6.9 g/dL (6.4-8.2) Albumin 2.3 g/dL (3.4-5.0) Albumin/Globulin Ratio 0.5 (1.0-1.7) Allergies Allergies Coded Allergies Type Severity Reaction Last Updated Verified No Known Drug Allergies 02/15/16 No Disposition/Orders: Justicifation of Admission Dx: Justifications for Admission: Justification of Admission Dx: Yes Respiratory Failure: Severe Vent Deficit SUSI MAYORGA MD Feb 17, 2020 21:28
== END 2020-02-17 16:18 | DRG 180 ==
LOC: ER 03:38 → ED HOLD 04:59 → 4 NORTH 05:06
PROVIDERS: ADMIT Internal Medicine; ATTEND Internal Medicine
DX: C78.02 Secondary malignant neoplasm of left lung (principal); E43 Unspecified severe protein-calorie malnutrition; J96.01 Acute respiratory failure with hypoxia; C79.51 Secondary malignant neoplasm of bone; E87.1 Hypo-osmolality and hyponatremia; J44.1 Chronic obstructive pulmonary disease with (acute) exacerbation; J91.0 Malignant pleural effusion; C78.01 Secondary malignant neoplasm of right lung; C50.919 Malignant neoplasm of unspecified site of unspecified female breast; D63.8 Anemia in other chronic diseases classified elsewhere; D72.828 Other elevated white blood cell count; E66.9 Obesity, unspecified; Z68.39 Body mass index [BMI] 39.0-39.9, adult; E78.00 Pure hypercholesterolemia, unspecified; E78.5 Hyperlipidemia, unspecified; E86.9 Volume depletion, unspecified; E87.8 Other disorders of electrolyte and fluid balance, not elsewhere classified; F17.201 Nicotine dependence, unspecified, in remission; Z66 Do not resuscitate; Z90.12 Acquired absence of left breast and nipple; F41.9 Anxiety disorder, unspecified
CPT/HCPCS: 36415; 51702; 71045; 80053; 83880; 84484; 85025; 93005; 96374; 99285; A4314; J1940; G0378